=== PATIENT | female | born 1980 | race Caucasian/White ===

== ENCOUNTER 2020-09-27 17:39 | Emergency (ER) | payer BC, SELFPAY ==
[2020-09-27 17:55] VITALS: BP 105/74; PULSE 94; RESP 18; TEMP 36.6; O2SAT 98; BMI 31.1
--- NOTE | 2020-09-27 18:12 | HMH.EDUTC ---
[facility] [place] Clinical Impression: Acute bronchitis Qualifiers: Bronchitis organism: unspecified organism Qualified Code(s): J20.9 - Acute bronchitis, unspecified Sinusitis Qualifiers: Sinusitis location: unspecified location Chronicity: unspecified Qualified Code(s): J32.9 - Chronic sinusitis, unspecified Disposition: Home, Self-Care Condition on Discharge: Good Instructions: Sinusitis, Sinus Headache, Acute Bronchitis, DI for Sinusitis, DI for Acute Bronchitis, Azithromycin Additional Instructions: *Monitor Temp, Over the counter Motrin or Tylenol as directed/as needed Tylenol every 4 hours and Motrin every 6 hours (as long as your family doctor has told you that you can take it) for fever or pain. and straight to ER if unable to lower temp less than 101.0 after medication given *Warm salt water gargles may help to soothe the throat *Throat Lozenges *Warm fluids like tea with honey may help to soothe the throat *Sleep elevated *Bromfed may cause drowsiness. Know how it effects you (your child) before driving, caring for small child, or sending your child to school. Not other antihistamines/allergy medications while taking bromfed ? Start antibiotic today. Be sure to complete entire prescription even if feeling better ? Monitor temp. Tylenol every 4 hours as needed and / or ibuprofen every 6 hours as needed ( As long as your primary care physician has told you that it ok to take both. For fever/aches/pains ER if no less than 101 despite Tylenol or Motrin ? Humidifier/vaporizer or hot steamy shower ? Inhaler every 4-6 hours as needed like we discussed. If unsure how to use it, ask pharmacist to demonstrate how. Should help open airways and improve cough, wheezing, and shortness of breath ? Mucinex during the day for your cough and cough suppressant only at night. Be sure to drink lots of water. Insurance may not cover a prescriptions for mucinex. Follow up IMMEDIATELY for new or worsening of symptoms OR no noticeable improvement over the next 48-72 hours. 911 immediately for any life threatening symptoms such as chest pain or difficulty breathing You was tested for today for COVID19 your test result should be back in the next 24-48 hours, you may call back on Thursday to see if your test results are back and the result You was given a handout with instructions for Self Quarantine and Self isolation for while you wait on test results and what to do if they are positive Prescriptions: Albuterol Sulfate [Proventil-HFA 90mcg/puff Inh] 1 - 2 puffs IH Q4HP PRN #1 inh PRN Reason: Shortness Of Breath Transmission Status: Received by [facility] # Brompheniramine/Pseudoephed/Dm [Bromfed Dm Cough Syrup] 5 - 10 ml PO Q46H PRN #200 ml PRN Reason: Cough Transmission Status: Received by [facility] # Fluticasone Propionate [Flonase 50mcg nasal spray 16gm] 1 spr NS DAILY #1 bottle Transmission Status: Received by [facility] # Azithromycin [Z-James 250mg Tab] 250 mg PO DIRECTED #6 tab Transmission Status: Received by [facility] # Referrals: PCP,No [Primary Care Provider] - As needed Forms: Work/School Release Time of Disposition: 18:22 Medical Decision Making - Matteo Inquiry Pt receiving controlled substance: No Matteo was queried for this patient: No Vital Signs: 09/27/20 17:55 09/27/20 18:31 Temperature 97.9 F 97.9 F Temperature Source Oral Pulse Rate 94 H Pulse Rate [Left Brachial] 94 H Respiratory Rate 18 18 Blood Pressure 105/74 L Blood Pressure [Left Arm] 105/74 L Blood Pressure Mean [Left Arm] 84 Blood Pressure Source [Left Arm] Automatic Cuff Blood Pressure Position [Left Arm] Sitting 02 Sat by Pulse Oximetry 98 Oxygen Delivery Method Room Air Orders (Tests/Meds): ED MEDICATIONS Discontinued Medications Generic Name Dose Route Start Last Admin Trade Name Freq PRN Reason Stop Dose Admin Methylprednisolone Sodium Succinate
[2020-09-27 18:31] VITALS: BP 105/74; PULSE 94; RESP 18; TEMP 36.6; O2SAT 98
[2020-09-29 16:07] LABS: Covid-19 Nasal PCR Sendout Lex Not Detected
--- NOTE | 2020-09-29 18:13 | PC.NURSE ---
nicyk left notifying patient of neg results
== END 2020-09-27 18:33 | disposition home or self-care (01) ==
PROVIDERS: Emergency Provider Nurse Practitioner
DX: Z20.828 Contact with and (suspected) exposure to other viral communicable diseases (principal); J20.9 Acute bronchitis, unspecified; J32.9 Chronic sinusitis, unspecified; F17.210 Nicotine dependence, cigarettes, uncomplicated
CPT/HCPCS: 96372; 99202; U0004

== ENCOUNTER 2021-03-17 21:11 | Emergency (ER) | payer BC, SELFPAY ==
[2021-03-17 21:12] VITALS: BP 117/82; PULSE 109; RESP 18; TEMP 36.8; O2SAT 98; BMI 36.3
[2021-03-17 21:24] VITALS: BP 117/82; PULSE 101; O2SAT 98
[2021-03-17 21:30] VITALS: BP 111/89; PULSE 102; O2SAT 96
--- NOTE | 2021-03-17 21:36 | CT_ITS ---
PROCEDURE: CT CERVICAL SPINE WO CON CLINICAL INDICATION: injury COMPARISON: No exams were available for comparison TECHNIQUE: Axial images obtained with sagittal and coronal reformats. All CT scans at the facility use one or more dose reduction, viz: automated exposure control, ma/kV adjustment per patient size (including targeted exams where dose is matched to indication, i.e. head), or iterative reconstruction technique. Axial spiral CT scanning performed of the cervical spine beginning at the base of the skull and continuing to the upper T-spine. 3-D multiplanar reconstruction with 3-D manipulation of volumetric data set in image rendering was completed by the radiologist and/or technologist with the supervision of the radiologist on independent workstation. FINDINGS: No fracture nor subluxation is evident. Normal prevertebral soft tissues. Facets, neural foramen and vertebral bodies intact and unremarkable. Normal C1/C2 relationships. Apices of lungs are clear with no acute findings. IMPRESSION: Cervical spine intact with no fracture nor subluxation. Dictated by: Rufus Rodriguez MD 03/18/2021 11:44 Rufus Rodriguez MD in [facility] 03/18/2021 11:44
--- NOTE | 2021-03-17 21:36 | XR_ITS ---
PROCEDURE: XR PELVIS 1-2V CLINICAL INDICATION: injury COMPARISON: No exams were available for comparison TECHNIQUE: XR Pelvis AP View FINDINGS: No fracture or dislocation is evident. No significant degenerative change. No lytic or blastic change. IMPRESSION: No acute findings. Dictated by: Rufus Rodriguez MD 03/18/2021 06:01 Rufus Rodriguez MD in [facility] 03/18/2021 06:01
--- NOTE | 2021-03-17 21:36 | XR_ITS ---
PROCEDURE: XR CHEST 2V CLINICAL HISTORY: injury COMPARISON: No exams were available for comparison FINDINGS: The cardiomediastinal silhouette and pulmonary vascularity are within normal limits. The lungs are clear without infiltrates, suspicious nodules, or pleural effusions. No acute bony abnormalities. IMPRESSION: No acute findings. Dictated by: Rufus Rodriguez MD 03/18/2021 06:03 Rufus Rodriguez MD in [facility] 03/18/2021 06:03
--- NOTE | 2021-03-17 21:36 | XR_ITS ---
PROCEDURE: XR SHOULDER RT MIN 2V CLINICAL INDICATION: injury Posttraumatic pain COMPARISON: No exams were available for comparison FINDINGS: No fracture or dislocation. No lytic or blastic change. There is normal mineralization. The joint spaces are well-preserved. No significant degenerative/arthritic changes. No erosive changes evident. Other findings:7 mm lucency is present involving the distal aspect of the clavicle and may be due to a small geode. IMPRESSION: No acute findings. Dictated by: Rufus Rodriguez MD 03/18/2021 06:01 Rufus Rodriguez MD in [facility] 03/18/2021 06:01
--- NOTE | 2021-03-17 21:36 | XR_ITS ---
PROCEDURE: XR KNEE RT 3V CLINICAL INDICATION: injury COMPARISON: No exams were available for comparison FINDINGS: No fracture or dislocation. No lytic or blastic change. There is normal mineralization. The joint spaces are well-preserved. No significant degenerative/arthritic changes. No erosive changes evident. Other findings:None. IMPRESSION: No acute findings. Dictated by: Rufus Rodriguez MD 03/18/2021 06:02 Rufus Rodriguez MD in [facility] 03/18/2021 06:02
--- NOTE | 2021-03-17 21:36 | CT_ITS ---
PROCEDURE: CT THORACIC SPINE WO CON CLINICAL HISTORY: injury Pain COMPARISON: No exams were available for comparison TECHNIQUE: Axial images obtained with sagittal and coronal reformats. All CT scans at the facility use one or more dose reduction, viz: automated exposure control, ma/kV adjustment per patient size (including targeted exams where dose is matched to indication, i.e. head), or iterative reconstruction technique. FINDINGS: Normal alignment. No fracture or dislocation. No lytic or blastic change. Minimal degenerative changes in the upper thoracic spine with slight decrease in the disc space at T2-T3-T4-T5 and T6 There is minimal centrilobular emphysematous change in the upper lobes in there is calcified nodes in the subcarinal region and right hilum IMPRESSION: No acute finding Dictated by: Rufus Rodriguez MD 03/18/2021 11:47 Rufus Rodriguez MD in [facility] 03/18/2021 11:47
--- NOTE | 2021-03-17 21:36 | CT_ITS ---
PROCEDURE: CT FACIAL BONES WO CON CLINICAL HISTORY: injury Pain COMPARISON: No exams were available for comparison TECHNIQUE: Axial images obtained with sagittal and coronal reformats. All CT scans at the facility use one or more dose reduction, viz: automated exposure control, ma/kV adjustment per patient size (including targeted exams where dose is matched to indication, i.e. head), or iterative reconstruction technique. FINDINGS: There is mild mucosal thickening the frontal sinuses and moderate opacification of the ethmoid sinuses on both sides. Minimal mucosal thickening right maxillary sinus. No sinus air-fluid levels. There is mild nasal septal deviation toward the left. Small right lynnette bullosa is noted. Artifact is present from ear piercing on the right. There is minimal calcification of the optic disc region on the right IMPRESSION: No acute fracture Minimal optic disc calcification on the right. Dictated by: Rufus Rodriguez MD 03/18/2021 11:41 Rufus Rodriguez MD in [facility] 03/18/2021 11:41
--- NOTE | 2021-03-17 21:47 | HMH.EDGENADL ---
ED Disposition Clinical Impression: Blurred vision, right eye Facial contusion Qualifiers: Encounter type: initial encounter Qualified Code(s): S00.83XA - Contusion of other part of head, initial encounter Shoulder pain, right Qualifiers: Chronicity: acute Qualified Code(s): M25.511 - Pain in right shoulder Knee pain, acute Qualifiers: Laterality: right Qualified Code(s): M25.561 - Pain in right knee Disposition: Home, Self-Care Condition on Discharge: Good Instructions: DI for Acute Pain -- Adult Additional Instructions: ice and see pcp for follow up and eye center and ortho Referrals: Tess Cantrell MD [Primary Care Provider] - Lenora Doe MD [Physician] - - Critical Care Critical Care Time: No Attestation: On 03/17/21, the high probability of a clinically significant, sudden or life threatening deterioration of the following system(s) required my full and direct attention, intervention and personal management. The time I documented below is in addition to time spent performing reported procedures but includes the following listed in this critical care notation. Medical Decision Making - Medical Records Medical records reviewed: Yes: I reviewed the patient's medical records. - Matteo Inquiry Pt receiving controlled substance: No Vital Signs: 03/17/21 21:12 03/17/21 21:24 03/17/21 21:30 Temperature 98.3 F Temperature Source Oral Pulse Rate 101 H 102 H Pulse Rate [Left Radial] 109 H Respiratory Rate 18 Blood Pressure 117/82 111/89 Blood Pressure [Left Arm] 117/82 Blood Pressure Mean 96 97 Blood Pressure Mean [Left Arm] 93 Blood Pressure Position [Left Arm] Sitting 02 Sat by Pulse Oximetry 98 98 96 Oxygen Delivery Method Room Air 03/17/21 22:01 03/18/21 00:16 Temperature Temperature Source Pulse Rate 95 H Pulse Rate [Left Radial] Respiratory Rate Blood Pressure Blood Pressure [Left Arm] Blood Pressure Mean Blood Pressure Mean [Left Arm] Blood Pressure Position [Left Arm] 02 Sat by Pulse Oximetry 97 Oxygen Delivery Method Room Air - Lab Data Lab results reviewed: Yes: I reviewed the patient's lab results. Orders (Tests/Meds): ORDERS Category Date Time Status CT cervical spine wo con Stat Cat Scan 03/17/21 21:[address] facial bones wo con Stat Cat Scan 04/25/21 21:[address] thoracic spine wo con Stat Cat Scan 03/17/21 21:36 Taken XR chest 2V Stat Exams 03/17/21 21:36 Taken XR knee RT 3V Stat Exams 03/17/21 21:36 Taken XR pelvis 1-2V Stat Exams 03/17/21 21:36 Taken XR shoulder RT min 2V Stat Exams 03/17/21 21:36 Taken - Radiology Data #1 Image(s): Chest, Shoulder, Pelvis, Knee Image Reviewed: Yes I reviewed the patient's radiology image Preliminary Findings: No Fracture Seen - CT Data CT Scan: C-Spine, T-Spine, Other (facial) Time Received: 00:[address] Reviewed: Yes: I have viewed the radiologist's interpretation Preliminary Findings: No Fracture Seen Medical Decision Narrative: rt knee with possible lig injury and rt shoulder pain and no def fx - will need see eye center and ortho and pcp General Adult HPI - General Chief complaint: PAIN Stated complaint: ao 03/17@1999 INJURED r sHOULDER,iND eYE Time Seen by Provider: 03/17/21 21:30 Mode of Arrival: Ambulatory Source of Information: Patient, Spouse, Medical Record Limitations: No Limitations Description of Symptoms (Recalled from ER Triage Doc. by RN): Pt reports mowing her grass on riding parts remover when she was struck by a tree branch to right side of her face, right shoulder, and c/o pain to right knee. Pt is ambulatory into ED. She also c/o blurred vision to the right eye. - History of Present Illness HPI narrative: pt with acute injury to rt knee facial area and rt shoulder with no loc - no abd pain but banks blurred vision rt eye Onset (ago): hour(s) Location: face, upper extremity, lower extremity Severity: moderate Associated sy
[2021-03-17 22:01] VITALS: PULSE 95; O2SAT 97
[2021-03-18 00:26] VITALS: BP 115/75; PULSE 79; RESP 17; TEMP 36.7; O2SAT 99
== END 2021-03-18 00:30 | disposition home or self-care (01) ==
PROVIDERS: Emergency Provider Emergency Medicine; PCP Family Medicine
DX: S00.83XA Contusion of other part of head, initial encounter (principal); M25.511 Pain in right shoulder; M25.561 Pain in right knee; H53.8 Other visual disturbances; W22.8XXA Striking against or struck by other objects, initial encounter; Y93.I9 Activity, other involving external motion; Y92.017 Garden or yard in single-family (private) house as the place of occurrence of the external cause; F17.210 Nicotine dependence, cigarettes, uncomplicated
CPT/HCPCS: 70486; 71046; 72125; 72128; 72170; 73030; 73562; 99282

== ENCOUNTER → 2021-04-02 10:39 | Outpatient (CLI) | payer BC, SELFPAY ==
--- NOTE | 2021-04-02 10:51 | MR_ITS ---
PROCEDURE: MR KNEE RT WO CON CLINICAL INDICATION: RIGHT KNEE PAIN COMPARISON: No exams were available for comparison TECHNIQUE: Routine multiplanar multi echo sequences are performed without gadolinium enhancement. FINDINGS: There is a complex tear of the anterior horn of the lateral meniscus. The medial meniscus is intact. The medial and lateral collateral ligament complex are intact. The ACL and PCL are intact. The extensor mechanism is unremarkable. The popliteal tendon and the posterolateral corner structures are within normal limits. The articular cartilage in the medial, lateral and patellofemoral compartments are intact intact without evidence of cartilage loss or defect. Bone marrow signal intensity is within normal limits. Small suprapatellar joint effusion is noted. Soft tissues are unremarkable. IMPRESSION: Complex tear of the anterior horn of the lateral meniscus. Small suprapatellar joint effusion. Dictated by: Flaca Garner 04/02/2021 13:36 Flaca Garner in [facility] 04/02/2021 13:36
== END ==
PROVIDERS: PCP Family Medicine; Visit Provider Orthopaedic Surgery
DX: M25.561 Pain in right knee (principal)
CPT/HCPCS: 73721

== ENCOUNTER 2021-10-02 12:12 | Emergency (ER) | payer MEDICAID, SELFPAY ==
[2021-10-02 14:05] VITALS: BP 122/87; PULSE 96; RESP 18; TEMP 36.8; O2SAT 98; BMI 36.9
[2021-10-02 14:18] LABS: UTC Strep Screen (Rapid) Positive (Negative)
[2021-10-02 14:30] VITALS: BP 122/87; PULSE 96; RESP 18; TEMP 36.8
--- NOTE | 2021-10-02 14:30 | HMH.EDUTC ---
[facility] [place] Clinical Impression: Sinusitis Qualifiers: Sinusitis location: unspecified location Chronicity: acute Recurrence: non-recurrent Qualified Code(s): J01.90 - Acute sinusitis, unspecified Pharyngitis Qualifiers: Pharyngitis/tonsillitis etiology: unspecified etiology Qualified Code(s): J02.9 - Acute pharyngitis, unspecified Disposition: Home, Self-Care Condition on Discharge: Good Instructions: DI for Pharyngitis/Tonsillopharyngitis -- Adult, DI for Sinusitis, Preventing the Spread of Coronavirus Discharge Instructions Additional Instructions: Drink plenty of fluids. Take tylenol or ibuprofen for pain or fever. Take the medications as directed. Follow up with your regular doctor. GO TO THE ER FOR ANY WORSENING SYMPTOMS Quarantine until you know the results of your covid-19 test. If it is positive, the health department should call you and give you further instructions about your length of Quarantine and other things. Notify your school or workplace of your results and follow their instructions regarding return to work/school. Prescriptions: Benzonatate [Benzonatate 100mg cap] 100 mg PO TIDP PRN #30 cap PRN Reason: Cough Transmission Status: Received by [facility] # methylPREDNISolone [Medrol] 4 mg PO DIRECTED 6 Days #21 packet Transmission Status: Received by [facility] # Azithromycin [Z-James 250mg Tab*] 250 mg PO UD DOSE PK #6 tab Transmission Status: Received by [facility] # Referrals: Tess Cantrell MD [Primary Care Provider] - Time of Disposition: 14:33 Medical Decision Making - Medical Records Medical records reviewed: No: I reviewed the patient's medical records. - Matteo Inquiry Pt receiving controlled substance: No Vital Signs: 10/02/21 14:05 10/02/21 14:30 Temperature 98.3 F 98.3 F Temperature Source Oral Pulse Rate 96 H Pulse Rate [Left] 96 H Respiratory Rate 18 18 Blood Pressure 122/87 Blood Pressure [Right Arm] 122/87 Blood Pressure Mean [Right Arm] 98 02 Sat by Pulse Oximetry 98 - Lab Data Lab results reviewed: Yes: I reviewed the patient's lab results. Lab Results 10/02/21 14:10: Strep Scn Rapid Clinic Positive A [facility] [place] - General Stated complaint: covid symptoms Time Seen by Provider: 10/02/21 14:30 Mode of Arrival: Ambulatory Source of Information: Patient Limitations: No Limitations Description of Symptoms (Recalled from Triage Doc. by RN): pt c/o nasal drainage, fatigue, cough, wheezing, congestion, loss of taste and body aches. HEENT Symptoms (Recalled from RN notes): Yes (congestion and loss of taste) Resp Symptoms (Recalled from RN notes): Yes (cough) Skin Symptoms (Recalled from RN notes): No MS Symptoms (Recalled from RN notes): No Functional Status (Recalled from RN notes): fatigue and myalgia - History of Present Illness Provider Complaint: She c/o feeling bad for the past 3 days. She has a cough and sinus congestion. She denies fever. She has been vaccinaed agains covid-19. - Related Data Home Medications Medication Instructions Recorded Confirmed Valacyclovir HCl [Valacyclovir] 500 mg PO DAILY 03/17/21 08/30/21 cyclobenzaprine 10 mg tablet 10 mg PO tab 08/30/21 08/30/21 methocarbamol 750 mg tablet 750 mg PO PRN tab 08/30/21 08/30/21 naproxen 500 mg tablet 500 mg PO tab 08/30/21 08/30/21 norethindrone (contraceptive) 0.35 0.35 mg PO tab 08/30/21 08/30/21 mg tablet tramadol 50 mg tablet 50 mg PO tab 08/30/21 08/30/21 Previous Rx's Medication Instructions Recorded Azithromycin [Z-James 250mg Tab*] 250 mg PO UD DOSE PK #6 tab 10/02/21 Benzonatate [Benzonatate 100mg 100 mg PO TIDP PRN #30 cap 10/02/21 cap] methylPREDNISolone [Medrol] 4 mg PO DIRECTED 6 Days #21 10/02/21 packet Allergies Allergy/AdvReac Type Severity Reaction Status Date / Time No Known Allergies Allergy Verified 08/30/21 17:18 - Worker's Comp Is this
== END 2021-10-02 14:46 | disposition home or self-care (01) ==
PROVIDERS: Emergency Provider Nurse Practitioner Family; PCP Family Medicine
DX: J01.90 Acute sinusitis, unspecified (principal); J02.9 Acute pharyngitis, unspecified; F17.210 Nicotine dependence, cigarettes, uncomplicated; Z20.822 Contact with and (suspected) exposure to COVID-19
CPT/HCPCS: 87880; 99203; C9803; G0463; U0003; U0005

== ENCOUNTER 2021-10-04 14:24 | Emergency (ER) | payer MEDICAID, SELFPAY ==
[2021-10-04 14:50] VITALS: BP 127/72; PULSE 99; RESP 17; TEMP 36.8; O2SAT 99; BMI 31.2
--- NOTE | 2021-10-04 15:25 | HMH.EDUTC ---
[facility] [place] Impression: URI (upper respiratory infection) Disposition: Home, Self-Care Condition on Discharge: Good Instructions: Sinusitis (Alternative Therapy), Sore Throat Additional Instructions: *Monitor Temp, Over the counter Motrin or Tylenol as directed/as needed Tylenol every 4 hours and Motrin every 6 hours (as long as your family doctor has told you that you can take it) for fever or pain. and straight to ER if unable to lower temp less than 101.0 after medication given Continue taking Medications as prescribed *Warm salt water gargles may help to soothe the throat *Throat Lozenges *Warm fluids like tea with honey may help to soothe the throat *Sleep elevated *Humidifier/Vaporizer *Flonase 2 sprays in each nostril daily but be aware that it may take 2-3 days before you notice improvement *Bromfed may cause drowsiness. Know how it effects you (your child) before driving, caring for small child, or sending your child to school. Not other antihistamines/allergy medications while taking bromfed Your throat swab was sent for culture. Those results are typically sent to your primary care. Be sure to follow up in 2-3 days with your family doctor/primary care physician if no improvement so they can review those result and treat if necessary. If you don?t have a primary care doctor, I recommend you get one but in the mean time, you will have to return to a walk in clinic Follow up IMMEDIATELY for new or worsening symptoms or no Noticeable improvement over the next 48-72 hours. 911 for difficulty breathing or swallowing Prescriptions: Albuterol Sulfate [Proventil-HFA 90mcg/puff Inh] 1 - 2 puffs IH Q6HP PRN #1 each PRN Reason: Shortness Of Breath Transmission Status: Received by [facility] #[id number] Brompheniramine/Pseudoephed/Dm [Bromfed Dm Cough Syrup] 5 - 10 ml PO Q46H PRN #200 ml PRN Reason: Cough Transmission Status: Received by [facility] #[id number] Referrals: Brandon Conklin APRN [Primary Care Provider] - As needed Time of Disposition: 15:57 Medical Decision Making - Matteo Inquiry Pt receiving controlled substance: No Matteo was queried for this patient: No Vital Signs: 10/04/21 14:50 10/04/21 16:16 Temperature 98.2 F 98.2 F Temperature Source Oral Pulse Rate 99 H Pulse Rate [Right Brachial] 99 H Respiratory Rate 17 17 Blood Pressure 127/72 Blood Pressure [Right Arm] 127/72 Blood Pressure Mean [Right Arm] 90 Blood Pressure Source [Right Arm] Automatic Cuff Blood Pressure Position [Right Arm] Sitting 02 Sat by Pulse Oximetry 99 Oxygen Delivery Method Room Air - Lab Data Lab results reviewed: Yes: I reviewed the patient's lab results. Lab Results 10/04/21 15:09: Strep Scn Rapid Clinic Negative Orders (Tests/Meds): ED MEDICATIONS Discontinued Medications Generic Name Dose Route Start Last Admin Trade Name Leidy PRN Reason Stop Dose Admin Ceftriaxone Sodium 1 gm 10/04/21 15:50 10/04/21 16:03 Ceftriaxone 1gm Vial IM 10/04/21 15:51 1 gm ONCE ONE Administration Lidocaine HCl 0 ml 10/04/21 15:50 10/04/21 16:03 Lidocaine 1% 5ml Pf Vial IM 10/04/21 15:51 2.1 ml ONCE ONE Administration ORDERS Category Date Time Status Strep Screen Confirmation Stat Micro 10/04/21 15:09 Received [facility] [place] - General Stated complaint: sore throat, cough, loss of taste, abd pains Time Seen by Provider: 10/04/21 15:25 Mode of Arrival: Ambulatory Source of Information: Patient Limitations: No Limitations Description of Symptoms (Recalled from Triage Doc. by RN): PATIENT REPORTS SHE WAS TREATED FOR STREP A FEW DAYS AGO BUT IS NOT FEELING BETTER HEENT Symptoms (Recalled from RN notes): Yes Resp Symptoms (Recalled from RN notes): No Skin Symptoms (Recalled from RN notes): No MS Symptoms (Recalled from RN notes): No Functional Status (Recalled from RN notes): WNL - History of Present Illness Provider Complaint: Patient states th
[2021-10-04 15:29] LABS: UTC Strep Screen (Rapid) Negative (Negative)
[2021-10-04 16:16] VITALS: BP 127/72; PULSE 99; RESP 17; TEMP 36.8; O2SAT 99
== END 2021-10-04 16:23 | disposition home or self-care (01) ==
PROVIDERS: Emergency Provider Nurse Practitioner; PCP Nurse Practitioner Family
DX: J06.9 Acute upper respiratory infection, unspecified (principal)
CPT/HCPCS: 87880; 96372; 99202; G0463

== ENCOUNTER 2021-10-07 20:36 | Emergency (ER) | payer MEDICAID, SELFPAY ==
--- NOTE | 2021-10-07 20:31 | ECG_ITS ---
APPROVED REPORT Exam: Resting ECG HR:101 bpm ECG Measurements Heart Rate 101 AXES LA 122 P 67 QRSd 78 QRS 39 QT 366 T 66 QTc 474 Conclusion Sinus tachycardia Otherwise normal ECG Electronically signed by : Oscar Ryan MD 10/08/2021 22:10:04
[2021-10-07 20:37] VITALS: BP 156/94; PULSE 99; RESP 20; TEMP 36.5; O2SAT 98; BMI 35.5
--- NOTE | 2021-10-07 20:38 | XR_ITS ---
PROCEDURE INFORMATION: Exam: XR Chest Exam date and time: 10/07/2021 8:38 PM Age: 41 years old Clinical indication: Right-sided; Patient HX: Chest pain for 1 day that is across entire chest and goes up right side of neck, smoker around 2 packs per day TECHNIQUE: Imaging protocol: XR of the chest. Views: 2 views. COMPARISON: CR XR CHEST 2V 03/17/2021 10:43 PM FINDINGS: Lungs: Unremarkable. No consolidation. Pleural spaces: Unremarkable. No pleural effusion. No pneumothorax. Heart/Mediastinum: Unremarkable. No cardiomegaly. Bones/joints: Unremarkable. IMPRESSION: No acute findings.
[2021-10-07 20:41] VITALS: BMI 35.5
--- NOTE | 2021-10-07 20:41 | HMH.EDGENADL ---
ED Disposition Clinical Impression: Atypical chest pain Disposition: Home, Self-Care Condition on Discharge: Good Additional Instructions: Please follow-up with your primary care provider. For the next week take 600 of ibuprofen every 8 hours. Return to the emergency department for any new or concerning symptoms. Referrals: Provider,Referral, [Referring] - - Critical Care Critical Care Time: No Attestation: On , the high probability of a clinically significant, sudden or life threatening deterioration of the following system(s) required my full and direct attention, intervention and personal management. The time I documented below is in addition to time spent performing reported procedures but includes the following listed in this critical care notation. Medical Decision Making - Medical Records Medical records reviewed: Yes: I reviewed the patient's medical records. - Matteo Inquiry Pt receiving controlled substance: No Vital Signs: 10/07/21 20:37 Temperature 97.7 F Temperature Source Oral Pulse Rate [Right] 99 H Respiratory Rate 20 Blood Pressure [Right Arm] 156/94 H Blood Pressure Mean [Right Arm] 114 02 Sat by Pulse Oximetry 98 Oxygen Delivery Method Room Air - Lab Data Lab results reviewed: Yes: I reviewed the patient's lab results. Lab Results 10/07/21 20:42: WBC 22.6 H*, RBC 4.50, Hgb 13.7, Hct 40.8, MCV 90.7, MCH 30.4, MCHC 33.5, RDW 13.4, Plt Count 643 H, MPV 7.9, Neut % (Auto) 65.1, Lymph % (Auto) 27.1, [place] % (Auto) 4.1, Eos % (Auto) 2.8, Baso % (Auto) 0.9, Neut # (Auto) 14.7 H, Lymph # (Auto) 6.1 H, [place] # (Auto) 0.9, Eos # (Auto) 0.6 H, Baso # (Auto) 0.2 10/07/21 20:42: Sodium 138, Potassium 3.9, Chloride 102, Carbon Dioxide 31 H, Anion Gap 8.9, BUN 8, Creatinine 0.50 L, Estimated Creat Clear 233, Estimated GFR 136, Est GFR ( Amer) 165, Glucose 128 H, Calcium 9.0, Total Bilirubin 0.2, AST 16, ALT 15, Alkaline Phosphatase 77, Troponin I < 0.01, Total Protein 6.6, Albumin 3.8, Globulin 2.8, Albumin/Globulin Ratio 1.4 10/07/21 20:42: Magnesium 2.0 Result diagrams: 10/07/21 20:42 10/07/21 20:42 Orders (Tests/Meds): ED MEDICATIONS Discontinued Medications Generic Name Dose Route Start Last Admin Trade Name Leidy PRN Reason Stop Dose Admin Belladonna Alkaloids 60 ml 10/07/21 20:52 10/07/21 20:52 Gi Cocktail 60ml Udc PO 10/07/21 20:53 60 ml ONCE ONE Administration Diazepam 2 mg 10/07/21 21:49 10/07/21 21:50 Diazepam 2mg Tablet PO 10/07/21 21:50 Not Given ONCE ONE Diazepam 2 mg 10/07/21 21:51 Diazepam 10mg/2ml Syringe IV 10/07/21 21:52 ONCE ONE Ibuprofen 600 mg 10/07/21 21:42 10/07/21 21:47 Ibuprofen 600 Mg Tablet PO 10/07/21 21:43 600 mg ONCE ONE Administration ORDERS Category Date Time Status Complete Blood Count Auto Diff Stat Lab 10/07/21 20:42 Results Troponin I Q3H Lab 10/07/21 23:45 Ordered Troponin I Q3H Lab 10/08/21 02:45 Ordered - ALYSSA Score for Non-Stemi Age of Patient: 40-49 years old Heart Rate: 90-109 bpm Systolic Blood Pressure: 140-159 mmHg Serum Creatinine: 0.40-0.79 mg/dl CHF Killip Class: I-No CHF Other Risk Factors: None Non-Stemi Risk Score: 68 Medical Decision Narrative: Patient is a 41-year-old female presenting to the emergency department chief complaint of chest pain. Differential diagnosis in this patient includes ACS, pericarditis, GERD, pneumonia, esophagitis among others. Given this plan to order CBC, CMP, chest x-ray, troponin, EKG. CMP showed a leukocytosis, however patient recently received a steroid shot, believe this is the etiology of patient's discomfort, on ECG patient had normal sinus rhythm, no significant ST elevation or ST depression. Breathing comfortably on room air, patient was given a GI cocktail and had moderate resolution of symptoms. She complaining of bilateral shoulder pain as well as palpable external muscular chest pain. Patient was given Motrin for the sym
[2021-10-07 21:00] VITALS: BP 138/94; PULSE 90; RESP 18; O2SAT 97
[2021-10-07 21:00] LABS: Basophils # 0.2 K/mm3 (0-0.2); Basophils % 0.9 % (0.1-2.0); Chloride 102 mmol/L (98-107); Eosinophils # 0.6 K/mm3 (0.0-0.4); Eosinophils % 2.8 % (0.1-12.0); Hematocrit 40.8 % (37.0-47.0); Hemoglobin 13.7 g/dL (12.2-16.2); Lymphocytes # 6.1 K/mm3 (0.7-4.5); Lymphocytes % 27.1 % (10-50); Mean Corpuscular HGB Conc 33.5 g/dL (31.8-35.4); Mean Corpuscular Hemoglobin 30.4 pg (27.0-31.2); Mean Corpuscular Volume 90.7 fl (81-99); Mean Platelet Volume 7.9 fl (7.4-10.4); Monocytes # 0.9 K/mm3 (0.1-1.0); Monocytes % 4.1 % (1.7-9.3); Neutrophils # 14.7 K/mm3 (1.8-7.8); Neutrophils % 65.1 % (37.0-80.0); Platelet Count 643 K/mm3 (142-424); Red Cell Distribution Width 13.4 % (11.5-17.5); Sodium 138 mmol/L (136-145); White Blood Count 22.6 K/mm3 (4.8-10.8)
[2021-10-07 21:01] LABS: Potassium 3.9 mmoL/L (3.5-5.1)
[2021-10-07 21:02] LABS: MANUAL DIFFERENTIAL MANUAL DIFFERENTIAL (MANUAL DIFF)
[2021-10-07 21:03] LABS: Alanine Aminotransferase 15 U/L (12-78); Alkaline Phosphatase 77 U/L (38-126); Anion Gap 8.9 mEq/L (5-15); Aspartate Amino Transferase 16 U/L (14-36); Bilirubin,Total 0.2 mg/dl (0.2-1.3); Blood Urea Nitrogen 8 mg/dl (7-17); Carbon Dioxide 31 mmol/L (22.0-30.0); Creatinine Clearance Estimated 233 mL/min (50-200); Estimated Glomerular Filt Rate 136 ml/min (>60); GFR (African American) 165 ML/MIN (>60)
[2021-10-07 21:04] LABS: Albumin Level 3.8 g/dl (3.5-5.0); Albumin/Globulin Ratio 1.4 (1.1-1.8); Globulin 2.8 g/dL (1.3-3.2); Glucose 128 mg/dl (74-100); Total Protein,Serum 6.6 g/dl (6.3-8.2)
[2021-10-07 21:30] VITALS: BP 126/80; PULSE 92; RESP 20; O2SAT 96
[2021-10-07 21:30] LABS: Troponin I < 0.01 ng/ml (0.00-0.034)
[2021-10-07 22:00] VITALS: BP 130/88; PULSE 84; RESP 16; TEMP 36.7; O2SAT 98
[2021-10-07 22:35] LABS: Eosinophils % 2 % (0-3); Lymphocytes % 36 % (10-50); Monocytes % 5 % (2-9); Neutrophils % 57 % (42-76); Platelet Estimate Moderate Increase; RBC Morphology Normal; Total Cells Counted 100
== END 2021-10-07 22:10 | disposition home or self-care (01) ==
PROVIDERS: Emergency Provider Emergency Medicine; PCP Family Medicine
DX: R07.89 Other chest pain (principal); F17.210 Nicotine dependence, cigarettes, uncomplicated
CPT/HCPCS: 71046; 80053; 83735; 84484; 85007; 85025; 93005; 96374; 96375; 99282

== ENCOUNTER → 2021-12-04 12:33 | Outpatient (CLI) | payer MEDICAID, SELFPAY | PROVIDERS: Visit Provider Nurse Practitioner | DX: Z20.822 Contact with and (suspected) exposure to COVID-19 (principal) | CPT/HCPCS: C9803; U0003; U0005 ==

== ENCOUNTER → 2021-12-23 14:25 | Outpatient (CLI) | payer MEDICAID, SELFPAY | PROVIDERS: PCP Family Medicine; Visit Provider Nurse Practitioner | DX: U07.1 COVID-19 (principal) | CPT/HCPCS: C9803; U0003; U0005 ==

== ENCOUNTER → 2022-01-31 12:20 | Outpatient (CLI) | payer MEDICAID, SELFPAY ==
--- NOTE | 2022-01-31 12:26 | MM_ITS ---
PROCEDURE INFORMATION: Exam: MG Bilateral Screening 3D Mammography Exam date and time: 01/31/2022 12:26 PM Age: 41 years old Clinical indication: Baseline. No family history of breast cancer. TECHNIQUE: Imaging protocol: Bilateral Screening tomosynthesis and 2D mammography including computer-aided detection (CAD) when performed. COMPARISON: No relevant prior studies available.If prior mammograms are provided, I am happy to add an addendum. FINDINGS: MAMMOGRAPHY: Breast composition: The breast tissue is heterogeneously dense, which may obscure small masses. Mass: Possible sub cm nodules in the right breast, upper outer quadrant, middle to posterior 3rd. Architectural distortion: None. Calcifications: No suspicious calcifications. Asymmetric density: None. Skin thickening: None. Axillary adenopathy: None. IMPRESSION: Patient to be recalled for right diagnostic spot compression views in the CC and MLO as well as right breast ultrasound for further evaluation of possible right breast masses. ASSESSMENT: BI-RADS Category 0: Incomplete- Need Additional Imaging Evaluation and/or Prior Mammograms for Comparison
== END ==
PROVIDERS: PCP Family Medicine; Visit Provider Obstetrics & Gynecology Gynecology
DX: Z12.31 Encounter for screening mammogram for malignant neoplasm of breast (principal)
CPT/HCPCS: 77063; 77067

== ENCOUNTER → 2022-02-11 13:22 | Outpatient (CLI) | payer MEDICAID, SELFPAY ==
--- NOTE | 2022-02-11 13:31 | MM_ITS ---
PROCEDURE INFORMATION: Exam: US Right Breast, Complete MG Right Diagnostic Breast Tomosynthesis Exam date and time: 02/11/2022 1:47 PM Age: 41 years old Clinical indication: Patient recalled for further evaluation of questionable right breast masses TECHNIQUE: Imaging protocol: Complete ultrasound of all four quadrants of the Right breast and the retroareolar regions, including ultrasound of the axilla when performed. Right Diagnostic tomosynthesis and 2D mammography including computer-aided detection (CAD) when performed. Unilateral or bilateral exam. COMPARISON: 1. MG MM DIG SCREENING MAMM BI W/CAD 01/31/2022 12:58 PM 2. MG MM DIG MAMM DX UNILAT RT CAD 02/11/2022 1:47 PM FINDINGS: MAMMOGRAPHY: Digital diagnostic spot compression views of the right breast demonstrate normal overlapping fibroglandular structures without persistent mass or asymmetry identified. ULTRASOUND: Sonographic images of the right lateral breast demonstrates a cluster of cysts with a combined dimension of 0.7 cm in the 9 o'clock axis 3 cm from the nipple and a 0.6 cm benign intramammary lymph node in the 7 o'clock axis 4 cm from the nipple. No axillary adenopathy. IMPRESSION: No mammographic or sonographic evidence of malignancy. Annual bilateral mammographic screening is recommended unless otherwise clinically indicated. ASSESSMENT: BI-RADS Category 2: Benign
== END ==
PROVIDERS: PCP Family Medicine; Visit Provider Obstetrics & Gynecology Gynecology
DX: R92.8 Other abnormal and inconclusive findings on diagnostic imaging of breast (principal)
CPT/HCPCS: 76641; 77061; 77065; G0279

== ENCOUNTER 2022-06-22 11:52 | Emergency (ER) | payer MEDICAID, SELFPAY ==
[2022-06-22 11:53] VITALS: BP 154/91; PULSE 103; RESP 18; TEMP 36.5; O2SAT 98; BMI 35.2
--- NOTE | 2022-06-22 11:57 | PC.NURSE ---
RN in room triaging pt
--- NOTE | 2022-06-22 12:15 | PC.NURSE ---
ED MD AT BEDSIDE FOR EVALUATION
--- NOTE | 2022-06-22 12:26 | HMH.EDGENADL ---
ED Disposition Clinical Impression: Pain, dental Disposition: Home, Self-Care Condition on Discharge: Good Instructions: Tooth Abscess Additional Instructions: As discussed, call your dentist for further definitive management and characterization of dental pain. Take Augmentin 3 times daily for the next 7 days. Tylenol and ibuprofen for pain. Prescriptions: Amoxicillin/Potassium Clav [Augmentin 500mg tab] 500 mg PO TID #21 tab Transmission Status: Pending to [facility] Referrals: Tess Cantrell MD [Primary Care Provider] - - Critical Care Critical Care Time: No Attestation: On 06/22/22, the high probability of a clinically significant, sudden or life threatening deterioration of the following system(s) required my full and direct attention, intervention and personal management. The time I documented below is in addition to time spent performing reported procedures but includes the following listed in this critical care notation. Medical Decision Making - Matteo Inquiry Pt receiving controlled substance: No Vital Signs: 06/22/22 11:53 Temperature 97.7 F Temperature Source Oral Pulse Rate [Radial] 103 H Respiratory Rate 18 Blood Pressure [Right Arm] 154/91 H Blood Pressure Mean [Right Arm] 112 Blood Pressure Source [Right Arm] Automatic Cuff Blood Pressure Position [Right Arm] Sitting 02 Sat by Pulse Oximetry 98 Oxygen Delivery Method Room Air - Lab Data Lab Results 06/22/22 12:00: Group A Strep Rapid Negative Orders (Tests/Meds): ED MEDICATIONS Discontinued Medications Generic Name Dose Route Start Last Admin Trade Name Leidy PRN Reason Stop Dose Admin Acetaminophen 500 mg 06/22/22 12:25 06/22/22 12:30 Acetaminophen 500mg Tab PO 06/22/22 12:26 500 mg ONCE ONE Administration Hydrocodone Bitart/Acetaminophen 1 tab 06/22/22 12:25 06/22/22 12:30 Hydrocodone/Apap 5/325 Mg Tablet PO 06/22/22 12:26 1 tab ONCE ONE Administration ORDERS Category Date Time Status Covid-19 Nasal PCR ([facility]) Routine Lab 06/22/22 12:35 Received Strep Screen Confirmation Stat Micro 06/22/22 12:00 Received Medical Decision Narrative: This is a 42-year-old female with hypertension presenting with right facial pain. On arrival, patient hemodynamically stable, alert, oriented, moving all extremities spontaneously, pupils equal and reactive to light, GCS 15. Physical exam significant for well-appearing woman in no acute distress. Ulcer on hard palate that is subcentimeter, mildly tender to palpation. Swelling of hard palate on right side medial to teeth 2 and 3. No evidence of uvular deviation, uvulitis, tonsillitis, pharyngeal erythema, soft palate lesions, lymphadenopathy, stridor, any other intraoral abnormalities. Cardiopulmonary exam within normal limits. Logically intact and nonfocal. Differential includes gingivitis, periapical abscess, dental carry, sinusitis, among others. Work-up significant for negative streptococcal screen, COVID pending at time of discharge. Given patient's history and physical exam, this most likely represents dental caries versus sinusitis versus periapical abscess. Decision was had with patient regarding home-going and her comfort with this. She was comfortable with home-going, has a dentist she will follow-up with within 24 hours, and is agreeable to outpatient regiment with antibiotics and dental follow-up. Given this, patient deemed appropriate for discharge. Results were relayed to patient who voiced understanding and were agreeable to outpatient management and follow up. Patient was discharged in hemodynamically stable condition with recommended primary care follow-up. Given Augmentin 3 times daily for 7 days General Adult HPI - General Chief complaint: Dental/Oral Stated complaint: sore throat/blisters, fever, jaw pain Time Seen by Provider: 06/22/22 12:00 Mode of Arrival: Ambulatory Limitations: No Limitations Fr[place]
--- NOTE | 2022-06-22 12:30 | PC.NURSE ---
1230 PT MEDICATED PER EMAR, COVID SWAB COLLECTED AND SENT TO LAB
--- NOTE | 2022-06-22 12:45 | ECG_ITS ---
APPROVED REPORT Exam: Resting ECG HR:93 bpm ECG Measurements Heart Rate 93 AXES TN 127 P 62 QRSd 93 QRS 41 QT 367 T 59 QTc 418 Conclusion SINUS RHYTHM NORMAL ECG UNCONFIRMED REPORT Electronically signed by : Oscar Ryan MD 06/23/2022 20:37:50
[2022-06-22 12:48] LABS: Strep Scrn Group A (Rapid) Negative (Negative)
--- NOTE | 2022-06-22 13:27 | PC.NURSE ---
ED MD AT BEDSIDE TO REEVALUATE PT AND DISCUSS DISCHARGE
[2022-06-22 13:40] VITALS: BP 140/82; PULSE 76; RESP 18; TEMP 36.7
== END 2022-06-22 13:40 | disposition home or self-care (01) ==
PROVIDERS: Emergency Provider Emergency Medicine; PCP Family Medicine
DX: K08.89 Other specified disorders of teeth and supporting structures (principal); Z79.3 Long term (current) use of hormonal contraceptives
CPT/HCPCS: 87430; 93005; 99283; C9803; U0003; U0005

== ENCOUNTER 2022-09-19 19:56 | Emergency (ER) | payer MEDICAID, SELFPAY ==
[2022-09-19 19:58] VITALS: BP 131/95; PULSE 102; RESP 20; TEMP 37.1; O2SAT 97; BMI 36.3
--- NOTE | 2022-09-19 22:48 | ECG_ITS ---
APPROVED REPORT Exam: Resting ECG HR:108 bpm ECG Measurements Heart Rate 108 AXES CO 123 P 67 QRSd 85 QRS 54 QT 339 T 61 QTc 402 Conclusion SINUS TACHYCARDIA ABNORMAL RHYTHM ECG UNCONFIRMED REPORT Electronically signed by : Oscar Ryan MD 09/20/2022 22:41:41
--- NOTE | 2022-09-19 23:07 | XR_ITS ---
PROCEDURE INFORMATION: Exam: XR Chest Exam date and time: 09/19/2022 11:38 PM Age: 42 years old Clinical indication: Shortness of breath; Additional info: SOA TECHNIQUE: Imaging protocol: Radiologic exam of the chest. Views: 2 views. COMPARISON: CR XR CHEST 2V 10/07/2021 8:41 PM FINDINGS: Lungs: No acute findings or consolidation. Pleural spaces: No pleural effusion. No pneumothorax. Heart/Mediastinum: No acute findings or cardiomegaly. Bones/joints: No acute findings. IMPRESSION: No acute cardiopulmonary findings.
--- NOTE | 2022-09-19 23:10 | HMH.EDURI ---
Discharge Plan Disposition Patient Disposition: Home, Self-Care Prescriptions Prescriptions: New prednisone [prednisone] 20 mg tablet 20 mg PO BID Qty: 10 0RF levofloxacin 500 mg tablet 500 mg PO DAILY Qty: 7 0RF No Action Qelbree 200 mg capsule,extended release 24hr 600 mg PO DAILY Qty: 90 1RF tramadol 50 mg tablet 50 mg PO Q6HP PRN (Reason: pain) Label Comments: TAKE 1 TABLET BY MOUTH EVERY 6 HOURS NEEDED FOR PAIN norethindrone (contraceptive) 0.35 mg tablet 0.35 mg PO DAILY Label Comments: TAKE 1 TABLET BY MOUTH EVERY DAY estradiol 0.075 mg/24 hr patch semiweekly 1 patch TD ONCE Label Comments: APPLY 1 PATCH TOPICALLY TO THE SKIN 2 TIMES A WEEK DIRECTED albuterol sulfate 200 PUFFS HFA aerosol inhaler 1 - 2 puffs IH Q6HP PRN (Reason: Shortness Of Breath) Qty: 1 0RF valacyclovir 500 MG tablet 500 mg PO DAILY Label Comments: TAKE 1 TABLET BY MOUTH DAILY Referrals Follow up/Referrals: Tess Cantrell MD [Primary Care Provider] - See instructions Clinical Impressions Clinical Impression: Acute bronchitis, SIRS (systemic inflammatory response syndrome), Leukocytosis, unspecified, Atypical chest pain Instructions Patient Instructions: DI for Acute Bronchitis Discharge ED Provider: Aung Lynn URI/Sore Throat HPI General Chief Complaint: Upper Respiratory Infection Stated Complaint: weakness, cough, congestion, dizziness, bulching Time Seen by Provider: 09/19/22 23:10 Mode of Arrival: Ambulatory Source of Information: Patient and Medical Record Limitations: No Limitations Description of Symptoms (Recalled from ER Triage Doc. by RN): pt states she started having right sided chest pain yesterday. she states the chest pain resolves when she belches, and continues after. she states she feels like she is having a panic attack. she c/o SOA, h/a, non-productive cough, and congestion. History of Present Illness HPI Narrative: has rt sided chest pain since yesterday with cough and congestion - does smoke - no rash and no abd pain Complaint: cough Onset (ago): day(s) Duration: intermittent Severity: moderate Able to tolerate fluids by mouth: Yes Treatments prior to arrival: none Related Data Home Medications Medication Instructions Recorded Confirmed valacyclovir 500 mg tablet 500 mg PO DAILY Herpes simplex 03/17/21 08/18/22 norethindrone (contraceptive) 0.35 0.35 mg PO DAILY control 08/30/21 08/18/22 mg tablet tramadol 50 mg tablet 50 mg PO Q6HP PRN pain 08/30/21 08/18/22 estradiol 0.075 mg/24 hr 1 patch transdermal ONCE 04/30/22 08/18/22 semiweekly transdermal patch Previous Rx's Medication Instructions Recorded albuterol sulfate 90 mcg/actuation 1 - 2 puffs inhalation Q6HP PRN 10/04/21 aerosol inhaler Shortness Of Breath #1 ea viloxazine 200 mg capsule,extended 600 mg PO DAILY #90 caps 08/18/22 release 24 hr (Qelbree) levofloxacin 500 mg tablet 500 mg PO DAILY #7 tabs 09/20/22 prednisone 20 mg tablet 20 mg PO BID #10 tabs 09/20/22 Allergies Allergy/AdvReac Type Severity Reaction Status Date / Time No Known Allergies Allergy Verified 08/18/22 13:15 PFSH PFS Medical History (Updated 09/20/22 @ 01:54 by Aung Lynn MD) Attention deficit disorder (ADD) in adult Surgical History (Updated 09/19/22 @ 23:01 by Nat Turner RN) H/O right knee surgery History of cholecystectomy History of hysterectomy History of tonsillectomy Family History (Updated 09/19/22 @ 23:02 by Nat Turner RN) Diabetes Heart attack Social History Smoking Status: Current every day smoker tobacco type: cigarettes packs per day: 1 alcohol intake: never current occupational status: student and other Travel in the last 8 weeks: None number of children: 4 ROS Obtained: Yes All systems reviewed & no additional complaints except as documented Physical Exam General General appeara
[2022-09-19 23:14] LABS: Coronavirus 19, PCR Not Detected (NotDetected); Influenza A, PCR Not Detected (NotDetected); Influenza B, PCR Not Detected (NotDetected)
[2022-09-19 23:21] LABS: Basophils # 0.3 K/mm3 (0-0.2); Basophils % 1.1 % (0.1-2.0); Eosinophils # 0.9 K/mm3 (0.0-0.4); Eosinophils % 3.3 % (0.1-12.0); Hematocrit 46.8 % (37.0-47.0); Hemoglobin 15.6 g/dL (12.2-16.2); Lymphocytes # 5.4 K/mm3 (0.7-4.5); Lymphocytes % 20.6 % (10-50); Mean Corpuscular HGB Conc 33.3 g/dL (31.8-35.4); Mean Corpuscular Hemoglobin 31.1 pg (27.0-31.2); Mean Corpuscular Volume 93.2 fl (81-99); Mean Platelet Volume 8.5 fl (7.4-10.4); Monocytes # 1.1 K/mm3 (0.1-1.0); Neutrophils # 18.6 K/mm3 (1.8-7.8); Neutrophils % 71.1 % (37.0-80.0); Platelet Count 570 K/mm3 (142-424); Red Blood Count 5.02 M/mm3 (4.20-5.40); Red Cell Distribution Width 13.2 % (11.5-17.5); White Blood Count 26.2 K/mm3 (4.8-10.8)
[2022-09-19 23:25] LABS: Alanine Aminotransferase 29 U/L (12-78); Albumin Level 4.1 g/dl (3.5-5.0); Albumin/Globulin Ratio 1.3 (1.1-1.8); Alkaline Phosphatase 158 U/L (38-126); Anion Gap 14.8 mEq/L (5-15); Aspartate Amino Transferase 30 U/L (14-36); Blood Urea Nitrogen 14 mg/dl (7-17); Calcium 8.9 mg/dl (8.4-10.2); Carbon Dioxide 28 mmol/L (22.0-30.0); Chloride 100 mmol/L (98-107); Creatinine Clearance Estimated 135 mL/min (50-200); Estimated Glomerular Filt Rate 92 ml/min (>60); GFR (African American) 111 ML/MIN (>60); Globulin 3.2 g/dL (1.3-3.2); Glucose 149 mg/dl (74-100); Potassium 3.8 mmoL/L (3.5-5.1); Sodium 139 mmol/L (136-145); Total Protein,Serum 7.3 g/dl (6.3-8.2)
[2022-09-19 23:28] LABS: Bilirubin,Total < 0.1 mg/dl (0.2-1.3)
[2022-09-19 23:32] LABS: MANUAL DIFFERENTIAL MANUAL DIFFERENTIAL (MANUAL DIFF)
[2022-09-19 23:39] LABS: Troponin I < 0.01 ng/ml (0.00-0.034)
--- NOTE | 2022-09-19 23:43 | CT_ITS ---
PROCEDURE INFORMATION: Exam: CTA Chest With Contrast Exam date and time: 09/19/2022 11:49 PM Age: 42 years old Clinical indication: Shortness of breath; Additional info: SOA TECHNIQUE: Imaging protocol: Computed tomographic angiography of the chest with contrast. 3D rendering (Not supervised by radiologist): MIP and/or 3D reconstructed images were created by the technologist. Radiation optimization: All CT scans at this facility use at least one of these dose optimization techniques: automated exposure control; mA and/or kV adjustment per patient size (includes targeted exams where dose is matched to clinical indication); or iterative reconstruction. Contrast material: ISOVUE 370; Contrast volume: 70 ml; Contrast route: INTRAVENOUS (IV); COMPARISON: CR XR CHEST 2V 09/19/2022 11:38 PM FINDINGS: Pulmonary arteries: No pulmonary emboli. Aorta: No aortic aneurysm. No aortic dissection. Lungs: Mild centrilobular and paraseptal emphysematous changes in the upper lobes. No acute appearing consolidation or airspace disease. Small calcified granuloma in the right middle lobe. Pleural spaces: No pneumothorax. No pleural effusion. Heart: No cardiomegaly. Trace pericardial fluid. Lymph nodes: Small calcified mediastinal and right hilar lymph nodes. Adrenal glands: Well-circumscribed homogeneously hypoattenuating right adrenal nodule is 3 cm most consistent with adenoma. Bones/joints: No acute fracture. Soft tissues: No acute findings. IMPRESSION: 1. Trace pericardial fluid. 2. No evidence of pulmonary embolus. 3. No acute airspace disease. 4. Mild emphysematous changes in the upper lobes. 5. Chronic granulomatous changes. 6. 3 cm right adrenal adenoma.
[2022-09-19 23:51] LABS: Eosinophils % 3 % (0-3); Lymphocytes % 21 % (10-50); Monocytes % 3 % (2-9); Neutrophils % 73 % (42-76); RBC Morphology Normal; Total Cells Counted 100
[2022-09-19 23:52] LABS: Platelet Estimate Slight Increase
[2022-09-19 23:54] LABS: Alanine Aminotransferase 28 U/L (12-78); Albumin Level 4.2 g/dl (3.5-5.0); Alkaline Phosphatase 155 U/L (38-126); Amylase 53 U/L (30-110); Aspartate Amino Transferase 27 U/L (14-36); Bilirubin,Indirect 0.1 mg/dL (0.0-0.9); Bilirubin,Total < 0.1 mg/dl (0.2-1.3); Lipase 64 U/L (23-300); Total Protein,Serum 7.4 g/dl (6.3-8.2)
[2022-09-20 00:30] VITALS: BP 156/105; PULSE 98; RESP 25; O2SAT 97
[2022-09-20 01:00] VITALS: BP 148/102; PULSE 100; RESP 24; O2SAT 97
[2022-09-20 01:09] LABS: Lactic Acid 0.6 mmol/L (0.7-2.1)
[2022-09-20 01:30] VITALS: BP 152/96; PULSE 101; RESP 26; O2SAT 97
[2022-09-20 01:57] VITALS: BP 152/96; PULSE 101; RESP 24; TEMP 37.1; O2SAT 97
[2022-09-22 02:04] LABS: Peripheral Smear Review Scanned Result
== END 2022-09-20 01:58 | disposition home or self-care (01) ==
PROVIDERS: Emergency Provider Emergency Medicine; PCP Family Medicine
DX: R65.10 Systemic inflammatory response syndrome (SIRS) of non-infectious origin without acute organ dysfunction (principal); D72.829 Elevated white blood cell count, unspecified; R07.89 Other chest pain; Z79.3 Long term (current) use of hormonal contraceptives; Z79.899 Other long term (current) drug therapy; B00.9 Herpesviral infection, unspecified
CPT/HCPCS: 71046; 71275; 80053; 80076; 82150; 83605; 83690; 84484; 85007; 85025; 87040; 93005; 96374; 99212; C9803; G0463; Q9967; U0003; U0005

== ENCOUNTER 2022-10-27 18:40 | Emergency (ER) | payer MEDICAID, SELFPAY ==
[2022-10-27 19:50] VITALS: BP 139/93; PULSE 133; RESP 19; TEMP 37.6; O2SAT 98; BMI 30.2
--- NOTE | 2022-10-27 20:07 | EXP.UTC ---
Discharge Plan Disposition Patient Disposition: Home, Self-Care Condition: Good Prescriptions Prescriptions: New cefdinir 300 mg capsule 300 mg PO BID Qty: 20 0RF guaifenesin [Mucinex] 600 mg tablet extended release 12hr 600 mg PO BID PRN (Reason: cough) Qty: 20 0RF azithromycin [Zithromax Z-James] 250 mg tablet See Rx Instructions .ROUTE .COMPLEX 5 Days Qty: 6 0RF Rx Instructions: For 250 mg dose pack: take 500 mg today (day 1), then 250 mg for 4 days (days 2-5) ondansetron 4 mg tablet,disintegrating 4 mg PO Q8H PRN (Reason: nausea and vomiting) Qty: 10 0RF albuterol sulfate [Proventil HFA] 90 mcg/actuation HFA aerosol inhaler 1 inh inhalation Q6H PRN (Reason: shortness of breath or wheezing) Qty: 8.5 0RF No Action Qelbree 200 mg capsule,extended release 24hr 600 mg PO DAILY Qty: 90 1RF tramadol 50 mg tablet 50 mg PO Q6HP PRN (Reason: pain) Label Comments: TAKE 1 TABLET BY MOUTH EVERY 6 HOURS NEEDED FOR PAIN norethindrone (contraceptive) 0.35 mg tablet 0.35 mg PO DAILY Label Comments: TAKE 1 TABLET BY MOUTH EVERY DAY estradiol 0.075 mg/24 hr patch semiweekly 1 patch TD ONCE Label Comments: APPLY 1 PATCH TOPICALLY TO THE SKIN 2 TIMES A WEEK DIRECTED albuterol sulfate 200 PUFFS HFA aerosol inhaler 1 - 2 puffs IH Q6HP PRN (Reason: Shortness Of Breath) Qty: 1 0RF prednisone [prednisone] 20 mg tablet 20 mg PO BID Qty: 10 0RF levofloxacin 500 mg tablet 500 mg PO DAILY Qty: 7 0RF valacyclovir 500 MG tablet 500 mg PO DAILY Label Comments: TAKE 1 TABLET BY MOUTH DAILY Referrals Follow up/Referrals: Tess Cantrell MD [Primary Care Provider] - See instructions Activity Restrictions/Add. Instructions Additional Instructions/Restrictions: Start antibiotic today. Be sure to complete entire prescription even if feeling better Monitor temp. Tylenol every 4 hours as needed and / or ibuprofen every 6 hours as needed ( As long as your primary care physician has told you that it ok to take both. For fever/aches/pains ER if no less than 101 despite Tylenol or Motrin Humidifier/vaporizer or hot steamy shower Inhaler every 4-6 hours as needed like we discussed. If unsure how to use it, ask pharmacist to demonstrate how. Should help open airways and improve cough, wheezing, and shortness of breath Mucinex during the day for your cough and cough suppressant only at night. Be sure to drink lots of water. Insurance may not cover a prescriptions for mucinex. Might be cheaper to get 400mg tablets and take 2 tablet in the morning, mid-day and evening with lots of water. *Promethazine DM cough syrup will cause drowsiness. Use only at night. No driving, operating machinery or caring for small children after taking it *Tessalon Perles will not cause drowsiness but use at bedtime to help stop cough so that you may get some rest. *Start steroid today. Helps with inflammation therefore, cough and wheezing. Follow directions on the package. Reviewed side effects. Patient reports taking them before. Follow up IMMEDIATELY for new or worsening of symptoms OR no noticeable improvement over the next 48-72 hours. 911 immediately for any life threatening symptoms such as chest pain or difficulty breathing Clinical Impressions Clinical Impression: Acute bronchitis Qualifiers: Bronchitis organism: unspecified organism Qualified Code(s): J20.9 - Acute bronchitis, unspecified Sinusitis Qualifiers: Sinusitis location: unspecified location Chronicity: unspecified Qualified Code(s): J32.9 - Chronic sinusitis, unspecified Stand Alone Forms Stand Alone Forms: Work/School Release Instructions Patient Instructions: Sinusitis, Acute Bronchitis, DI for Sinusitis Discharge ED Provider: Rosalva Aguila [facility] [place] H[place] General Stated complaint: vomiting, cough, congestion Time Seen by Provider: 10/27/22 20:07 His
[2022-10-27 20:20] LABS: UTC Influenza A Antigen Negative (Negative)
[2022-10-27 20:21] LABS: UTC Influenza B Antigen Negative (Negative)
[2022-10-27 20:51] VITALS: BP 139/93; PULSE 133; RESP 19; TEMP 37.6; O2SAT 98
== END 2022-10-27 21:08 | disposition home or self-care (01) ==
PROVIDERS: Emergency Provider Nurse Practitioner; PCP Family Medicine
DX: J20.9 Acute bronchitis, unspecified (principal); J32.9 Chronic sinusitis, unspecified
CPT/HCPCS: 87804; 96372; 99212; C9803; G0463; J0696; U0003; U0005

== ENCOUNTER 2023-02-05 17:01 | Emergency (ER) | payer MEDICAID, SELFPAY ==
[2023-02-05 17:02] VITALS: BP 127/80; PULSE 118; RESP 16; TEMP 37.3; O2SAT 96; BMI 36.1
[2023-02-05 17:23] VITALS: BP 127/80
[2023-02-05 17:30] VITALS: BP 127/88
--- NOTE | 2023-02-05 17:48 | HMH.EDGENADL ---
Discharge Plan Disposition Patient Disposition: Home, Self-Care Prescriptions Prescriptions: New ondansetron 4 mg tablet,disintegrating 4 mg PO Q6H PRN (Reason: nausea and vomiting) 5 Days Qty: 20 0RF No Action tramadol 50 mg tablet 50 mg PO Q6HP PRN (Reason: pain) Label Comments: TAKE 1 TABLET BY MOUTH EVERY 6 HOURS NEEDED FOR PAIN norethindrone (contraceptive) 0.35 mg tablet 0.35 mg PO DAILY Label Comments: TAKE 1 TABLET BY MOUTH EVERY DAY estradiol 0.075 mg/24 hr patch semiweekly 1 patch TD ONCE Label Comments: APPLY 1 PATCH TOPICALLY TO THE SKIN 2 TIMES A WEEK DIRECTED Qelbree 200 mg capsule,extended release 24hr 600 mg PO DAILY Qty: 90 1RF albuterol sulfate 200 PUFFS HFA aerosol inhaler 1 - 2 puffs IH Q6HP PRN (Reason: Shortness Of Breath) Qty: 1 0RF prednisone [prednisone] 20 mg tablet 20 mg PO BID Qty: 10 0RF levofloxacin 500 mg tablet 500 mg PO DAILY Qty: 7 0RF cefdinir 300 mg capsule 300 mg PO BID Qty: 20 0RF guaifenesin [Mucinex] 600 mg tablet extended release 12hr 600 mg PO BID PRN (Reason: cough) Qty: 20 0RF azithromycin [Zithromax Z-James] 250 mg tablet See Rx Instructions .ROUTE .COMPLEX 5 Days Qty: 6 0RF Rx Instructions: For 250 mg dose pack: take 500 mg today (day 1), then 250 mg for 4 days (days 2-5) ondansetron 4 mg tablet,disintegrating 4 mg PO Q8H PRN (Reason: nausea and vomiting) Qty: 10 0RF albuterol sulfate [Proventil HFA] 90 mcg/actuation HFA aerosol inhaler 1 inh inhalation Q6H PRN (Reason: shortness of breath or wheezing) Qty: 8.5 0RF valacyclovir 500 MG tablet 500 mg PO DAILY Label Comments: TAKE 1 TABLET BY MOUTH DAILY Referrals Follow up/Referrals: Tess Cantrell MD [Primary Care Provider] - See instructions Activity Restrictions/Add. Instructions Additional Instructions/Restrictions: Return to the emergency department as needed otherwise follow-up with primary care doctor next week. Clinical Impressions Clinical Impression: Nausea vomiting and diarrhea, Headache, Body aches, Acute viral syndrome Discharge ED Provider: Nona Araujo General Adult HPI General Chief complaint: Headache Stated complaint: vomiting, weakness, achy Time Seen by Provider: 02/05/23 17:48 History of Present Illness HPI narrative: Patient is a 42-year-old female with a history of adrenal adenoma and diabetes who presents today with nausea vomiting diarrhea and body aches over the last 24 hours. No significant abdominal pain no fevers or chills. No sick contacts that she is aware of no respiratory symptoms. States that it started out with some vomiting and diarrhea progressively worsened to where she has having body aches over the last day. Nonbloody nonbilious. Related Data Home Medications Medication Instructions Recorded Confirmed valacyclovir 500 mg tablet 500 mg PO DAILY Herpes simplex 03/17/21 08/18/22 norethindrone (contraceptive) 0.35 0.35 mg PO DAILY control 08/30/21 08/18/22 mg tablet tramadol 50 mg tablet 50 mg PO Q6HP PRN pain 08/30/21 08/18/22 estradiol 0.075 mg/24 hr 1 patch transdermal ONCE 04/30/22 08/18/22 semiweekly transdermal patch Previous Rx's Medication Instructions Recorded albuterol sulfate 90 mcg/actuation 1 - 2 puffs inhalation Q6HP PRN 10/04/21 aerosol inhaler Shortness Of Breath #1 ea levofloxacin 500 mg tablet 500 mg PO DAILY #7 tabs 09/20/22 prednisone 20 mg tablet 20 mg PO BID #10 tabs 09/20/22 albuterol sulfate 90 mcg/actuation 1 inh inhalation Q6H PRN shortness 10/27/22 aerosol inhaler (Proventil HFA) of breath or wheezing #8.5 grams azithromycin 250 mg tablet See Rx Instructions PO .COMPLEX 5 10/27/22 (Zithromax Z-James) days #6 tabs cefdinir 300 mg capsule 300 mg PO BID #20 caps 10/27/22 guaifenesin 600 mg tablet, 600 mg PO BID PRN cough #20 tabs 10/27/22 extended release 12 hr (Mucinex) ondansetron 4 mg disintegrating 4 mg PO Q
[2023-02-05 18:30] VITALS: BP 127/77; PULSE 94; O2SAT 95
--- NOTE | 2023-02-05 18:42 | PC.NURSE ---
PT MEDICATED FOR H/A
[2023-02-05 18:48] LABS: Basophils # 0.1 K/mm3 (0-0.2); Basophils % 1.3 % (0.1-2.0); Chloride 101 mmol/L (98-107); Eosinophils # 0.3 K/mm3 (0.0-0.4); Hematocrit 47.8 % (37.0-47.0); Hemoglobin 15.9 g/dL (12.2-16.2); Lymphocytes # 2.1 K/mm3 (0.7-4.5); Lymphocytes % 20.8 % (10-50); Mean Corpuscular HGB Conc 33.2 g/dL (31.8-35.4); Mean Corpuscular Hemoglobin 30.8 pg (27.0-31.2); Mean Corpuscular Volume 92.6 fl (81-99); Mean Platelet Volume 7.9 fl (7.4-10.4); Monocytes # 0.6 K/mm3 (0.1-1.0); Monocytes % 5.8 % (1.7-9.3); Neutrophils # 7.1 K/mm3 (1.8-7.8); Platelet Count 405 K/mm3 (142-424); Potassium 3.5 mmoL/L (3.5-5.1); Red Blood Count 5.16 M/mm3 (4.20-5.40); Red Cell Distribution Width 12.9 % (11.5-17.5); White Blood Count 10.2 K/mm3 (4.8-10.8)
[2023-02-05 18:50] LABS: Alanine Aminotransferase 20 U/L (12-78); Alkaline Phosphatase 94 U/L (38-126); Aspartate Amino Transferase 21 U/L (14-36); Bilirubin,Total 0.2 mg/dl (0.2-1.3); Blood Urea Nitrogen 10 mg/dl (7-17); Creatinine Clearance Estimated 134 mL/min (50-200); Estimated Glomerular Filt Rate 92 ml/min (>60); GFR (African American) 111 ML/MIN (>60)
[2023-02-05 18:51] LABS: Albumin Level 4.1 g/dl (3.5-5.0); Albumin/Globulin Ratio 1.6 (1.1-1.8); Calcium 8.2 mg/dl (8.4-10.2); Carbon Dioxide 32 mmol/L (22.0-30.0); Globulin 2.6 g/dL (1.3-3.2); Glucose 112 mg/dl (74-100); Lipase 46 U/L (23-300); Total Protein,Serum 6.7 g/dl (6.3-8.2)
[2023-02-05 19:00] VITALS: BP 120/69; PULSE 92; O2SAT 94
[2023-02-05 19:29] LABS: Anion Gap 9.5 mEq/L (5-15); Sodium 139 mmol/L (136-145)
[2023-02-05 19:34] VITALS: BP 119/74; PULSE 90; RESP 16; TEMP 37.1; O2SAT 94
== END 2023-02-05 19:35 | disposition home or self-care (01) ==
PROVIDERS: Emergency Provider Student in an Organized Health Care Education/Training Program; PCP Family Medicine
DX: R51.9 Headache, unspecified (principal); M79.18 Myalgia, other site; B34.9 Viral infection, unspecified; E11.9 Type 2 diabetes mellitus without complications
CPT/HCPCS: 80053; 83690; 85025; 96361; 96374; 96375; 99284; 99285; J2405

== ENCOUNTER 2023-03-08 15:57 | Emergency (ER) | payer OTHER, MEDICAID, SELFPAY ==
--- NOTE | 2023-03-08 16:26 | EXP.UTC ---
Discharge Plan Disposition Patient Disposition: Home, Self-Care Condition: Good Prescriptions Prescriptions: New fluticasone propionate [Flonase Allergy Relief] 50 mcg/actuation spray,suspension 1 - 2 spray intranasal DAILY Qty: 16 0RF Rx Instructions: administer into each nostril benzonatate 100 mg capsule 100 mg PO TID PRN (Reason: cough) Qty: 30 0RF No Action tramadol 50 mg tablet 50 mg PO Q6HP PRN (Reason: pain) Label Comments: TAKE 1 TABLET BY MOUTH EVERY 6 HOURS NEEDED FOR PAIN norethindrone (contraceptive) 0.35 mg tablet 0.35 mg PO DAILY Label Comments: TAKE 1 TABLET BY MOUTH EVERY DAY estradiol 0.075 mg/24 hr patch semiweekly 1 patch TD ONCE Label Comments: APPLY 1 PATCH TOPICALLY TO THE SKIN 2 TIMES A WEEK DIRECTED Qelbree 200 mg capsule,extended release 24hr 600 mg PO DAILY Qty: 90 1RF albuterol sulfate 200 PUFFS HFA aerosol inhaler 1 - 2 puffs IH Q6HP PRN (Reason: Shortness Of Breath) Qty: 1 0RF prednisone [prednisone] 20 mg tablet 20 mg PO BID Qty: 10 0RF levofloxacin 500 mg tablet 500 mg PO DAILY Qty: 7 0RF cefdinir 300 mg capsule 300 mg PO BID Qty: 20 0RF guaifenesin [Mucinex] 600 mg tablet extended release 12hr 600 mg PO BID PRN (Reason: cough) Qty: 20 0RF azithromycin [Zithromax Z-James] 250 mg tablet See Rx Instructions .ROUTE .COMPLEX 5 Days Qty: 6 0RF Rx Instructions: For 250 mg dose pack: take 500 mg today (day 1), then 250 mg for 4 days (days 2-5) ondansetron 4 mg tablet,disintegrating 4 mg PO Q8H PRN (Reason: nausea and vomiting) Qty: 10 0RF albuterol sulfate [Proventil HFA] 90 mcg/actuation HFA aerosol inhaler 1 inh inhalation Q6H PRN (Reason: shortness of breath or wheezing) Qty: 8.5 0RF ondansetron 4 mg tablet,disintegrating 4 mg PO Q6H PRN (Reason: nausea and vomiting) 5 Days Qty: 20 0RF valacyclovir 500 MG tablet 500 mg PO DAILY Label Comments: TAKE 1 TABLET BY MOUTH DAILY Referrals Follow up/Referrals: Tess Cantrell MD [Primary Care Provider] - See instructions Activity Restrictions/Add. Instructions Additional Instructions/Restrictions: *Monitor Temp, Over the counter Motrin or Tylenol as directed/as needed Tylenol every 4 hours and Motrin every 6 hours (as long as your family doctor has told you that you can take it) for fever or pain. and straight to ER if unable to lower temp less than 101.0 after medication given *Warm salt water gargles may help to soothe the throat *Throat Lozenges? *Warm fluids like tea with honey may help to soothe the throat? *Sleep elevated *Humidifier/Vaporizer Your throat swab was sent for culture. Those results are typically sent to your primary care. Be sure to follow up in 2-3 days with your family doctor/primary care physician if no improvement so they can review those result and treat if necessary. If you don?t have a primary care doctor, I recommend you get one but in the mean time, you will have to return to a walk in clinic Follow up IMMEDIATELY for new or worsening symptoms or no Noticeable improvement over the next 48-72 hours. 911 for difficulty breathing or swallowing Clinical Impressions Clinical Impression: URI (upper respiratory infection) Qualifiers: URI type: unspecified URI Qualified Code(s): J06.9 - Acute upper respiratory infection, unspecified Stand Alone Forms Stand Alone Forms: Work/School Release Instructions Patient Instructions: Sore Throat, DI for Sinusitis [place]charge ED Provider: [place]alva Aguila [facility] [place] Stated complaint: Headache, congestion,Sore throat Time Seen by Provider: 03/08/23 16:26 History of Present Illness Provider Complaint: Patient state that her daughter recently had strep throat, states that she is having sore throat, nasal congestion, cough and headache States that she feels like she may have strep throat now too States that she is s
[2023-03-08 16:29] VITALS: BP 131/88; PULSE 94; RESP 18; TEMP 37; O2SAT 99; BMI 32.0
[2023-03-08 16:39] LABS: UTC Strep Screen (Rapid) Negative (Negative)
[2023-03-08 16:54] VITALS: BP 131/88; PULSE 94; RESP 18; TEMP 37; O2SAT 99
== END 2023-03-08 17:09 | disposition home or self-care (01) ==
PROVIDERS: Emergency Provider Nurse Practitioner; PCP Family Medicine
DX: J06.9 Acute upper respiratory infection, unspecified (principal); R51.9 Headache, unspecified; F17.210 Nicotine dependence, cigarettes, uncomplicated
CPT/HCPCS: 87880; 96372; 99212; 99214; G0463; J0696

== ENCOUNTER → 2023-05-08 15:45 | Outpatient (CLI) | payer MEDICAID, SELFPAY ==
--- NOTE | 2023-05-08 15:54 | MM_ITS ---
PROCEDURE INFORMATION: Exam: MG Bilateral Screening 3D Mammography Exam date and time: 05/08/2023 3:46 PM Age: 43 years old Clinical indication: Screening examination TECHNIQUE: Imaging protocol: Bilateral Screening tomosynthesis and 2D mammography including computer-aided detection (CAD) when performed. COMPARISON: 1. MG MM DIG MAMM DX UNILAT RT CAD 02/11/2022 1:47 PM 2. MG MM DIG SCREENING MAMM BI W/CAD 01/31/2022 12:58 PM FINDINGS: MAMMOGRAPHY: Breast composition: There are scattered areas of fibroglandular density. Mass: 0.9 cm ovoid mass in the posterior third of the right lateral breast. Architectural distortion: None. Calcifications: No suspicious calcifications. Asymmetric density: None. Skin thickening: None. Axillary adenopathy: None. IMPRESSION: Patient to be recalled for spot compression views of the right breast in the CC and MLO projections, a full 90 degree lateral view, and right breast ultrasound for further evaluation of a right breast mass. ASSESSMENT: BI-RADS Category 0: Incomplete- Need Additional Imaging Evaluation and/or Prior Mammograms for Comparison
== END ==
PROVIDERS: PCP Family Medicine; Visit Provider Obstetrics & Gynecology Gynecology
DX: Z12.31 Encounter for screening mammogram for malignant neoplasm of breast (principal)
CPT/HCPCS: 77063; 77067

== ENCOUNTER 2023-05-14 20:27 | Emergency (ER) | payer OTHER, MEDICAID, SELFPAY ==
[2023-05-14] VITALS (7 sets, daily range): BP systolic 126–158; BP diastolic 76–123; PULSE 103–129; RESP 23; TEMP 37; O2SAT 96–100; BMI 33.7
--- NOTE | 2023-05-14 20:22 | PC.NURSE ---
SPOKE WITH KANE @ [facility], WILL CALL BACK
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
[2023-05-14 20:52] LABS: Chloride 101 mmol/L (98-107); Potassium 3.5 mmoL/L (3.5-5.1); Sodium 140 mmol/L (136-145)
[2023-05-14 20:55] LABS: Alanine Aminotransferase 28 U/L (12-78); Albumin Level 4.1 g/dl (3.5-5.0); Albumin/Globulin Ratio 1.4 (1.1-1.8); Alkaline Phosphatase 86 U/L (38-126); Anion Gap 14.5 mEq/L (5-15); Aspartate Amino Transferase 25 U/L (14-36); Blood Urea Nitrogen 9 mg/dl (7-17); Calcium 8.9 mg/dl (8.4-10.2); Carbon Dioxide 28 mmol/L (22.0-30.0); Creatinine Clearance Estimated 145 mL/min (50-200); Estimated Glomerular Filt Rate 109 ml/min (>60); GFR (African American) 132 ML/MIN (>60); Globulin 2.9 g/dL (1.3-3.2); Glucose 151 mg/dl (74-100)
[2023-05-14 20:57] LABS: Bilirubin,Total < 0.1 mg/dl (0.2-1.3); Ethyl Alcohol < 10 mg/dl (0-10)
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
[2023-05-14 21:06] LABS: Activated Partial Thrombo Time 26.7 seconds (22.8-30.6); INR 0.93 (0.9-1.1); Prothrombin Time 10.1 seconds (10.1-12.5)
[2023-05-14 21:23] LABS: Troponin I < 0.01 ng/ml (0.00-0.034)
[2023-05-14 21:27] LABS: Microscopic, Urine URINE MICROSCOPIC (MICROSCOPIC)
[2023-05-14 21:28] LABS: Appearance,Urine CLEAR (Clear); Bilirubin,Urine Negative (Negative); Blood, Urine 2+ (Negative); Color,Urine YELLOW (Yellow); Glucose,Urine (UA) Negative (Negative); Ketones,Urine Negative (Negative); Leukocyte Esterase,Urine TRACE (Negative); Nitrate,Urine Negative (Negative); Protein,Urine 1+ (Negative); Specific Gravity, Urine 1.025 (1.005-1.030); Urobilinogen,Urine 0.2 EU/dl (0.2)
[2023-05-14 21:43] LABS: Amphetamine/Metha Screen,Urine Negative ng/ml (<1000); Barbiturates Screen,Urine Negative ng/ml (<200)
[2023-05-14 21:44] LABS: Benzodiazepines Screen,Urine Negative ng/ml (<200)
[2023-05-14 21:45] LABS: Cannabinoid Screen,Urine Negative ng/ml (<50); Cocaine Screen,Urine Negative ng/ml (<300)
[2023-05-14 21:46] LABS: Methadone Screen,Urine Negative ng/ml (<300)
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
[2023-05-14 21:47] LABS: Opiate Screen,Urine Negative ng/ml (<300); Phencyclidine Screen,Urine Negative ng/ml (<25)
[2023-05-14 21:52] LABS: WBC,Urine Occasional #/hpf (0-3)
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
--- NOTE | 2023-05-14 22:58 | PC.NURSE ---
Cefazolin does not scan verified with Paris Hernández Rn
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
[2023-05-15] VITALS: BP 133/86; PULSE 105; PULSE 107; O2SAT 100; O2SAT 98
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
[2023-05-15 00:19] LABS: Basophils # 0.1 K/mm3 (0-0.2); Basophils % 0.4 % (0.1-2.0); Eosinophils # 0.8 K/mm3 (0.0-0.4); Eosinophils % 3.9 % (0.1-12.0); Hematocrit 44.2 % (37.0-47.0); Hemoglobin 14.7 g/dL (12.2-16.2); Lymphocytes # 5.5 K/mm3 (0.7-4.5); Lymphocytes % 26.7 % (10-50); Mean Corpuscular HGB Conc 33.3 g/dL (31.8-35.4); Mean Corpuscular Hemoglobin 30.6 pg (27.0-31.2); Mean Corpuscular Volume 91.9 fl (81-99); Mean Platelet Volume 8.5 fl (7.4-10.4); Monocytes # 0.8 K/mm3 (0.1-1.0); Monocytes % 4.1 % (1.7-9.3); Neutrophils # 13.3 K/mm3 (1.8-7.8); Platelet Count 467 K/mm3 (142-424); Red Blood Count 4.81 M/mm3 (4.20-5.40); Red Cell Distribution Width 13.1 % (11.5-17.5); White Blood Count 20.5 K/mm3 (4.8-10.8)
--- NOTE | 2023-05-15 00:23 | PC.NURSE ---
Pt requested to speak with nurse. Went in and spoke with patient, she advised she would have her take her to ED and she did not want to go by EMS. I spoke with patient and explained and she still wanted to go POV. Spoke with MD about pt's request and she was agreeable with pt's choice but advised to have her sign new transfer record.
--- NOTE | 2023-05-15 00:25 | PC.NURSE ---
Called report to [facility], s/w Le RODRIGUEZ Charge
[2023-05-15 00:28] VITALS: BP 133/86; PULSE 96; RESP 21; TEMP 37; O2SAT 96
[2023-05-15 00:31] LABS: MANUAL DIFFERENTIAL MANUAL DIFFERENTIAL (MANUAL DIFF)
[2023-05-15 02:05] LABS: Eosinophils % 3 % (0-3); Lymphocytes % 28 % (10-50); Monocytes % 1 % (2-9); Neutrophils % 68 % (42-76); Platelet Estimate Normal; RBC Morphology Normal; Total Cells Counted 100
== END 2023-05-15 00:30 | disposition short-term general hospital (02) ==
PROVIDERS: Emergency Provider Emergency Medicine; PCP Family Medicine
DX: S06.0X1A Concussion with loss of consciousness of 30 minutes or less, initial encounter (principal); S09.8XXA Other specified injuries of head, initial encounter; S01.01XA Laceration without foreign body of scalp, initial encounter; F17.210 Nicotine dependence, cigarettes, uncomplicated; F41.9 Anxiety disorder, unspecified; F90.9 Attention-deficit hyperactivity disorder, unspecified type; V43.62XA Car passenger injured in collision with other type car in traffic accident, initial encounter
CPT/HCPCS: 13121; 13122; 70450; 71045; 71250; 72020; 72125; 72128; 72131; 72170; 74176; 80053; 80305; 81001; 84484; 85007; 85025; 85610; 85730; 96361; 96365; 96374; 96375; 99291; G0390; J0131

== ENCOUNTER → 2023-05-18 14:10 | Outpatient (CLI) | payer MEDICAID, SELFPAY ==
--- NOTE | 2023-05-18 14:14 | MM_ITS ---
PROCEDURE INFORMATION: Exam: US Right Breast, Complete MG Right Diagnostic Breast Tomosynthesis Exam date and time: 05/18/2023 2:16 PM Age: 43 years old Clinical indication: Patient recalled on the basis of a screening mammogram for further evaluation; Right breast; mass TECHNIQUE: Imaging protocol: Complete ultrasound of all four quadrants of the right breast and the retroareolar regions, including ultrasound of the axilla when performed. Right Diagnostic tomosynthesis and 2D mammography including computer-aided detection (CAD) when performed. Unilateral or bilateral exam. COMPARISON: 1. MG MM DIG SCREENING MAMM BI W/CAD 05/08/2023 3:46 PM 2. MG MM DIG MAMM DX UNILAT RT CAD 02/11/2022 1:47 PM FINDINGS: MAMMOGRAPHY: Digital diagnostic spot compression views of the posterior right lower outer quadrant demonstrates a persistent lobulated 0.9 cm mass without associated distortion. ULTRASOUND: Sonographic images of the right breast including the retroareolar region, all 4 quadrants and the axilla do not demonstrate any solid masses. Cluster of cysts with a combined dimension of 0.8 cm is noted in the deep 7 o'clock axis most closely corresponding to the mass on mammography. Additional cluster of subcentimeter cysts with a combined dimension is noted in the superficial 9 o'clock axis measuring 0.9 cm in greatest dimension. No architectural distortion or acoustical shadowing. No skin thickening or axillary adenopathy. IMPRESSION: Mass on screening mammography corresponds to underlying cystic change sonographically. There is no mammographic evidence of malignancy.Annual bilateral mammographic screening is recommended unless otherwise clinically indicated. ASSESSMENT: BI-RADS Category 2: Benign
== END ==
LOC: RAD 14:10
PROVIDERS: PCP Family Medicine; Visit Provider Obstetrics & Gynecology Gynecology
DX: R92.8 Other abnormal and inconclusive findings on diagnostic imaging of breast (principal)
CPT/HCPCS: 76641; 77061; 77065; G0279

== ENCOUNTER 2023-06-03 12:09 | Emergency (ER) | payer MEDICAID, SELFPAY ==
[2023-06-03 12:20] VITALS: BP 121/76; PULSE 99; RESP 18; TEMP 36.7; O2SAT 96; BMI 33.1
--- NOTE | 2023-06-03 12:35 | EXP.UTC ---
Discharge Plan Disposition Patient Disposition: Home, Self-Care Condition: Good Prescriptions Prescriptions: New cephalexin 500 mg capsule 500 mg PO QID 7 Days Qty: 28 0RF mupirocin 2 % ointment 1 applic topical TID 10 Days Qty: 22 0RF Rx Instructions: apply to area as directed No Action estrogens-methyltestosterone 0.625-1.25 mg tablet 1 tab PO DAILY sumatriptan succinate 25 mg tablet 25 mg PO DAILY amitriptyline 25 mg tablet 25 mg PO DAILY Referrals Follow up/Referrals: Tess Cantrell MD [Primary Care Provider] - See instructions Activity Restrictions/Add. Instructions Additional Instructions/Restrictions: *Start antibiotic(s) immediately and be sure to take as ordered for the FULL length of time although you may be feeling better or start to see improvement in the next 24-48 hours *Monitor closely. Outlined redness so that you can monitor easier. Follow up immediately for new or worsening symptoms including but not limited to redness, swelling, streaking from site fever or chills. *Warm compress 15 minutes 3-4 times day *Never squeeze or pop these on your own. Seek immediate medical attention next time this occurs *Monitor Temp. Tylenol every 4 hours as needed and ibuprofen every 6 hours as needed (as long as your primary care doctor has told you that it is ok to take both. For fever, aches, pain. ER if no less that 101 despite Tylenol and ibuprofen ?Follow up with your family doctor/primary care physician in the next 48-72 hours if no improvement Clinical Impressions Clinical Impression: Cellulitis Qualifiers: Site of cellulitis: unspecified site Qualified Code(s): L03.90 - Cellulitis, unspecified Instructions Patient Instructions: Cellulitis, Cephalexin, Mupirocin Discharge ED Provider: Rosalva Aguila [facility] [place] General Stated complaint: Possible spider bite on back Mode of Arrival: Ambulatory Source of Information: Patient Limitations: No Limitations Time Seen by Provider: 06/03/23 12:36 Description of Symptoms (Recalled from Triage Doc. by RN): PATIENT C/O POSSIBLE SPIDER BITE TO LEFT SIDE OF BACK X 2 DAYS. ALSO REPORTS CHILLS THIS MORNING HEENT Symptoms (Recalled from RN notes): No Resp Symptoms (Recalled from RN notes): No Skin Symptoms (Recalled from RN notes): Yes MS Symptoms (Recalled from RN notes): No Functional Status (Recalled from RN notes): WNL History of Present Illness Provider Complaint: Patient states that she was outside mowing and seen several spiders and had to move a vehicle that was sitting and seen several spiders in it then started feeling a burning sensation on her left shoulder are and felt like something bite her States that she has a red raised warm area on her left shoulder that is sore to touch so she came in Related Data Home Medications Medication Instructions Recorded Confirmed amitriptyline 25 mg tablet 25 mg PO DAILY . 06/03/23 06/03/23 esterified 1 tab PO DAILY . 06/03/23 06/03/23 estrogens-methyltestosterone 0.625 mg-1.25 mg tablet sumatriptan succinate 25 mg tablet 25 mg PO DAILY . 06/03/23 06/03/23 Previous Rx's Medication Instructions Recorded cephalexin 500 mg capsule 500 mg PO QID 7 days #28 caps 06/03/23 mupirocin 2 % topical ointment 1 applic topical TID 10 days #22 06/03/23 grams Allergies Allergy/AdvReac Type Severity Reaction Status Date / Time hydrocodone Allergy Verified 06/03/23 12:32 Worker's Comp Is this a Worker's Comp case?: No [facility] Disclaimer: The information contained in this section may have been updated after the patient was seen, as this information can be updated by other users. Medical History Anxiety Attention deficit disorder (ADD) in adult Surgical History H/O right knee surgery History of cholecystectomy History of hysterectomy History of tonsillectom
[2023-06-03 12:40] VITALS: BP 121/76; PULSE 99; RESP 18; TEMP 36.7; O2SAT 96
== END 2023-06-03 12:43 | disposition home or self-care (01) ==
PROVIDERS: Emergency Provider Nurse Practitioner; PCP Family Medicine
DX: L03.114 Cellulitis of left upper limb (principal); F17.210 Nicotine dependence, cigarettes, uncomplicated; F41.9 Anxiety disorder, unspecified; F90.0 Attention-deficit hyperactivity disorder, predominantly inattentive type
CPT/HCPCS: 99212; 99214; G0463

== ENCOUNTER 2023-07-02 10:30 | Outpatient (RCR) | payer MEDICAID, SELFPAY | END 2023-07-02 10:35 | disposition home or self-care (01) | LOC: PT 10:30 | PROVIDERS: PCP Family Medicine; Visit Provider Family Medicine Sports Medicine | DX: S06.0X1A Concussion with loss of consciousness of 30 minutes or less, initial encounter (principal); G44.309 Post-traumatic headache, unspecified, not intractable | CPT/HCPCS: 20560; 20561; 97010; 97014; 97110; 97163; G0283 ==

== ENCOUNTER 2023-07-02 13:00 | Outpatient (RCR) | payer MEDICAID, SELFPAY ==
--- NOTE | 2023-06-12 10:33 | HMH.SLAPHASI ---
Speech & Language Evaluation Speech/Language Aphasia Evaluation Start: 06/12/23 09:46 Freq: once Status: Complete Protocol: Document 06/11/23 15:15 DAKOTAYAHAIRA (Rec: 06/12/23 10:33 MICHAEL [id number]) Aphasia Assessment/Goals/Plan Assessment Date of Evaluation: 06/11/23 Evaluation Type Initial Certification Assessment/Problems Dejah Serrano presents at [facility] at this date to complete a cognitive- linguistic evaluation per MD order. Does Patient Qualify for Service Yes Qualify/Failure Comment Based on assessment results, clinical observation, and patient interview, Dejah Serrano would benefit from skilled speech therapy services 1-2x/ week to address cognitive- linguistic deficits. Plan Pt will be seen # times/week 2 for # weeks 12 Anticipate reaching STG in # weeks 8 Anticipate reaching LTG in # weeks 12 Pt/Guardian verbally ack understanding Yes of dx/prognosis/goals G -code Required No STG-Reading Comprehension Reading Paragraphs & Ans Questions 75 STG-Attending/Orientation/Memory Delayed Recall 70 Attention/Concentration 70 Memory Recall 70 STG-Comparative/Linguistic Skills Thought Organization 75 Categorization Ability 70 STG-Divergent Thinking Deductive Reasoning 70 Fpc Goals Increase cognitive skills to communicate Yes: 75 w/family & friends Education Instructions provided Discussed assessment results, goals to be added to POC, and answered patient's questions regarding skilled speech therapy, all of which she expressed understanding. Pt/Caregiver Able to Recall Information Able to recall/restate Reinforcement needed No Speech & Language HPI History Present Illness Rehab Services Assessed Speech therapy Is this evaluation r/t stroke? No Language [place] Lang/Spoken in Home [place] Education/Learning/Family Last School Grade Completed College Learning Method Preference One-on-One Instruction, Demonstration,Discussion Aphasia Evaluations Communication Speech Intelligibility Dejah Serrano is 100% intelligible to unfamiliar listeners with unknown context . Auditory Comprehension Yes: Word Le
== END 2023-07-02 14:00 | disposition home or self-care (01) ==
LOC: ST 13:00
PROVIDERS: PCP Family Medicine; Visit Provider Family Medicine Sports Medicine
DX: S06.0X1A Concussion with loss of consciousness of 30 minutes or less, initial encounter (principal); G44.309 Post-traumatic headache, unspecified, not intractable
CPT/HCPCS: 92523; 97129; 97130

== ENCOUNTER 2023-07-02 14:00 | Outpatient (RCR) | payer MEDICAID, SELFPAY | END 2023-07-02 14:05 | disposition home or self-care (01) | LOC: OT 14:00 | PROVIDERS: PCP Family Medicine; Visit Provider Family Medicine Sports Medicine | DX: S06.0X1A Concussion with loss of consciousness of 30 minutes or less, initial encounter (principal); G44.309 Post-traumatic headache, unspecified, not intractable | CPT/HCPCS: 97110; 97140; 97165; 97530 ==

== ENCOUNTER 2024-03-16 17:57 | Emergency (ER) | payer MEDICAID, SELFPAY ==
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
[2024-03-16 19:10] VITALS: BP 126/73; PULSE 105; RESP 18; TEMP 36.6; O2SAT 96; BMI 34.7
[2024-03-16 19:19] LABS: Apearance,Urine Clear (Clear); Bilirubin,Urine Negative (Negative); Blood, Urine Negative (Negative); Color,Urine Yellow (Yellow); Glucose,Urine (UA) Negative (Negative); Ketones,Urine Negative (Negative); PH,Urine 5.5 (5.0-8.5); Protein,Urine Negative (Negative); UTC Leukocyte Esterase,Urine Trace (Negative); UTC Nitrate,Urine Negative (Negative); Urobilinogen,Urine 0.2 EU/dl (0.2)
[2024-03-16 19:21] LABS: UTC Strep Screen (Rapid) Negative (Negative)
[2024-03-16] MEDS: DEXAMETHASONE 4MG/ML 1ML VIAL 8 MG IM (20:00)
[2024-03-16] MEDS: LIDOCAINE 1% 5ML PF VIAL IM (20:00)
[2024-03-16] MEDS: cefTRIAXone 1GM VIAL 1 GM IM (20:00)
[2024-03-16 20:28] VITALS: BP 126/73; PULSE 105; RESP 18; TEMP 36.6; O2SAT 96
== END 2024-03-16 20:28 | disposition home or self-care (01) ==
PROVIDERS: Emergency Provider Nurse Practitioner Family; PCP Family Medicine
DX: J01.90 Acute sinusitis, unspecified (principal); M77.01 Medial epicondylitis, right elbow; H92.03 Otalgia, bilateral; R09.81 Nasal congestion; F17.210 Nicotine dependence, cigarettes, uncomplicated
CPT/HCPCS: 81003; 87086; 87880; 96372; 99212; 99214; G0463; J0696

== ENCOUNTER 2024-05-19 10:30 | Emergency (ER) | payer MEDICAID, SELFPAY ==
[2024-05-19 10:40] VITALS: BP 111/67; PULSE 98; RESP 20; TEMP 36.7; O2SAT 97; BMI 37.0
--- NOTE | 2024-05-19 10:59 | ED_ITS ---
Discharge Plan Disposition Patient Disposition: Home, Self-Care Condition: Good Prescriptions Prescriptions: New hydroxyzine HCl 25 mg tablet 25 mg PO TID PRN (Reason: itching) Qty: 30 1RF No Action estrogens-methyltestosterone 0.625-1.25 mg tablet 1 tab PO DAILY valacyclovir 500 mg tablet 500 mg PO DAILY metformin 500 mg tablet extended release 24 hr 500 mg PO DAILY Patient Comments: TAKE 2 TABLETS BY MOUTH ONCE DAILY WITH BREAKFAST atomoxetine 80 mg capsule 80 mg PO DAILY Patient Comments: TAKE 1 CAPSULE BY MOUTH ONCE DAILY Referrals Follow up/Referrals: Michael Wray MD [Primary Care Provider] - See instructions Activity Restrictions/Add. Instructions Additional Instructions/Restrictions: Use Flonase daily. Take medication as prescribed. If symptoms persist or worsen, return to clinic or follow up with PCP. Clinical Impressions Clinical Impression: Insect bite, Eustachian tube dysfunction Stand Alone Forms Stand Alone Forms: Work/School Release Instructions Patient Instructions: DI for Insect Bites and Stings, DI for Eustachian Tube Dysfunction-Adult Discharge ED Provider: Romy Snyder [facility] General Stated complaint: itching in back and arms, congestion Mode of Arrival: Ambulatory Source of Information: Patient Limitations: No Limitations Time Seen by Provider: 05/19/24 10:55 Description of Symptoms (Recalled from Triage Doc. by RN): PATIENT C/O ITCHY SPOTS TO FEET, ARMS, BACK AND ANKLES, FEVER, RIGHT EAR PAIN, CONGESTION, AND NAUSEA X 4 DAYS HEENT Symptoms (Recalled from RN notes): Yes Resp Symptoms (Recalled from RN notes): No Skin Symptoms (Recalled from RN notes): Yes MS Symptoms (Recalled from RN notes): No Functional Status (Recalled from RN notes): WNL History of Present Illness Provider Complaint: Pt reports not feeling well for the last 4 days. She states that she has random spots that itch and worries she may have caught something from the [employer] where she works. She further reports right ear pain and congestion. Related Data Home Medications Medication Instructions Recorded Confirmed atomoxetine 80 mg capsule 80 mg PO DAILY 05/19/24 05/19/24 esterified 1 tab PO DAILY 05/19/24 05/19/24 estrogens-methyltestosterone 0.625 mg-1.25 mg tablet metformin 500 mg tablet,extended 500 mg PO DAILY 05/19/24 05/19/24 release 24 hr valacyclovir 500 mg tablet 500 mg PO DAILY 05/19/24 05/19/24 Previous Rx's Medication Instructions Recorded hydroxyzine HCl 25 mg tablet 25 mg PO TID PRN itching #30 tabs 05/19/24 Allergies Allergy/AdvReac Type Severity Reaction Status Date / Time hydrocodone Allergy Verified 03/16/24 19:22 Worker's Comp Is this a Worker's Comp case?: No [facility] Disclaimer: The information contained in this section may have been updated after the patient was seen, as this information can be updated by other users. Medical History (Updated 05/19/24 @ 11:06 by Romy Snyder APRN) Hyperlipidemia Diabetes mellitus, type 2 COPD (chronic obstructive pulmonary disease) Insomnia Anxiety Attention deficit disorder (ADD) in adult Surgical History History of tonsillectomy H/O right knee surgery History of cholecystectomy History of hysterectomy Family History Other Diabetes Heart attack Social History Smoking Status: Current every day smoker tobacco type: cigarettes packs per day: 1 alcohol intake: never current occupational status: student and other Travel in the last 8 weeks: None number of children: 4 ROS Obtained: Yes All systems reviewed & no additional complaints except as documented Constitutional Constitutional: Reports system reviewed and no additional complaints, except as documented Eyes Eyes: Reports system reviewed and no additional complaints, except as documented ENT Ears, Nose, Mouth, and Throat: Reports system reviewed and no additional complaints, except as documented, Reports otalgia, Reports nasal congestion and Reports nasal discharge Cardiovascular Cardiovascular: Reports system reviewed and no additional complaints, except as documented Respiratory Respiratory: Reports system reviewed and no additional complaints, except as documented Gastrointestinal Gastrointestingal: Reports system reviewed and no additional complaints, except as documented Genitourinary Female Genitourinary: Reports system reviewed and no additional complaints, except as documented Musculoskeletal Musculoskeletal: Reports system reviewed and no additional complaints, except as documented Integumentary/Breasts Skin/Breast: Reports system reviewed and no additional complaints, except as documented and Reports pruritus Comments: tiny spots over skin Neurologic Neurologic: Reports system reviewed and no additional complaints, except as documented Endocrine Endocrine: Reports system reviewed and no additional complaints, except as documented Hematologic/Lymphatic Henatologic/Lymphatic: Reports system reviewed and no additional complaints, except as documented Allergic/Immunologic Allergic/Immunologic: Reports system reviewed and no additional complaints, except as documented Physical Exam General General appearance: alert and in no apparent distress Head Head exam: normocephalic Eye Eye exam: Present normal appearance ENT ENT exam: Present mucous membranes moist Expanded ENT Exam External ear exam: Present normal external inspection TM/Canal exam: Right TM: bulging, effusion and loss of landmarks Nose exam: Absent sinus tenderness Nasal speculum exam: Bilateral: other (clear drainage) Mouth exam: Present normal external inspection Teeth exam: Present normal inspection Throat exam: Present normal inspection Neck Neck exam: Present normal inspection; Absent lymphadenopathy Chest Chest inspection: Present normal inspection and symmetric chest wall rise Respiratory Respiratory exam: Present normal lung sounds bilaterally Cardiovascular Cardiovascular exam: Present normal rhythm, tachycardia and normal heart sounds Abdominal Exam Abdominal exam: Present soft and normal bowel sounds Back Exam Back exam: Present normal inspection Neurological Exam Neurological exam: Present alert and oriented X3 Psychiatric Psychiatric exam: Present normal affect and normal mood Skin Skin exam: Present other Expanded Skin Exam Type of lesion: Present bite/sting Distribution: generalized Description: Present size (pin head sized bites. Very few noted. No bites between fingers/toes. No areas in a straight line. No redness or swelling.) Lymphatic Lymphatic Findings: no adenopathy Medical Decision Making Matteo Inquiry Pt receiving controlled substance: No Matteo was queried for this patient: No Vital Signs: 05/19/24 10:40 Temperature 98.0 F Temperature Source Oral Pulse Rate [Left Brachial] 98 H Respiratory Rate 20 Blood Pressure [Left Arm] 111/67 Blood Pressure Mean [Left Arm] 81 Blood Pressure Source [Left Arm] Automatic Cuff Blood Pressure Position [Left Arm] Sitting 02 Sat by Pulse Oximetry 97 Oxygen Delivery Method Room Air
[2024-05-19 11:06] VITALS: BP 111/67; PULSE 98; RESP 20; TEMP 36.7; O2SAT 97
== END 2024-05-19 11:09 | disposition home or self-care (01) ==
PROVIDERS: Emergency Provider Nurse Practitioner Family; PCP Emergency Medicine
DX: H69.91 Unspecified Eustachian tube disorder, right ear (principal); H92.01 Otalgia, right ear; R21 Rash and other nonspecific skin eruption; W57.XXXA Bitten or stung by nonvenomous insect and other nonvenomous arthropods, initial encounter
CPT/HCPCS: 99212; 99214; G0463

== ENCOUNTER 2024-07-15 16:43 | Emergency (ER) | payer MEDICAID, SELFPAY ==
--- NOTE | 2024-07-15 18:05 | EXP.UTC ---
Discharge Plan Disposition Patient Disposition: Home, Self-Care Condition: Good Prescriptions Prescriptions: New permethrin 5 % cream 1 applic topical Q14D Qty: 60 1RF Rx Instructions: apply second treatment 14 days after first treatment if live lice remain cephalexin 500 mg capsule 500 mg PO QID Qty: 40 0RF methylprednisolone 4 mg Tablets,Dose Pack 4 mg PO DIRECTED 6 Days Qty: 21 0RF Rx Instructions: Take 1 pack as directed for 6 days No Action atomoxetine 80 mg capsule 80 mg PO DAILY Qty: 30 2RF estrogens-methyltestosterone 0.625-1.25 mg tablet 1 tab PO DAILY valacyclovir 500 mg tablet 500 mg PO DAILY metformin 500 mg tablet extended release 24 hr 500 mg PO DAILY Patient Comments: TAKE 2 TABLETS BY MOUTH ONCE DAILY WITH BREAKFAST hydroxyzine HCl 25 mg tablet 25 mg PO TID PRN (Reason: itching) Qty: 30 1RF Referrals Follow up/Referrals: Provider,Referral, MD [Primary Care Provider] - See instructions Activity Restrictions/Add. Instructions Additional Instructions/Restrictions: Drink plenty of fluids. Take tylenol or ibuprofen for pain or fever. Take the medications as directed. Follow up with your regular doctor. GO TO THE ER FOR ANY WORSENING SYMPTOMS Clinical Impressions Clinical Impression: Sinusitis, Otitis media, Skin rash Stand Alone Forms Stand Alone Forms: Work/School Release Instructions Patient Instructions: Sinusitis, DI for Sinusitis Print Language Print Language: Namibian Discharge ED Provider: Eddi Mcnair [facility] [place] HPI General Stated complaint: Sore throat,bumps all over body,right earache Time Seen by Provider: 07/15/24 18:05 Related Data Home Medications ?Medication ?Instructions ?Recorded ?Confirmed esterified 1 tab PO DAILY 05/19/24 05/19/24 estrogens-methyltestosterone 0.625 mg-1.25 mg tablet metformin 500 mg tablet,extended 500 mg PO DAILY 05/19/24 05/19/24 release 24 hr valacyclovir 500 mg tablet 500 mg PO DAILY 05/19/24 05/19/24 Previous Rx's ?Medication ?Instructions ?Recorded hydroxyzine HCl 25 mg tablet 25 mg PO TID PRN itching #30 tabs 05/19/24 atomoxetine 80 mg capsule 80 mg PO DAILY #30 caps 06/08/24 cephalexin 500 mg capsule 500 mg PO QID #40 caps 07/15/24 methylprednisolone 4 mg tablets in 4 mg PO DIRECTED 6 days #21 tabs 07/15/24 a dose pack permethrin 5 % topical cream 1 applic topical Q14D 2 doses #60 07/15/24 grams Allergies Allergy/AdvReac Type Severity Reaction Status Date / Time hydrocodone Allergy Verified 03/16/24 19:22 [facility] Disclaimer: The information contained in this section may have been updated after the patient was seen, as this information can be updated by other users. Medical History (Updated 07/15/24 @ 18:48 by Eddi Mcnair APRN) Hyperlipidemia Diabetes mellitus, type 2 COPD (chronic obstructive pulmonary disease) Insomnia Anxiety Attention deficit disorder (ADD) in adult Surgical History History of tonsillectomy H/O right knee surgery History of cholecystectomy History of hysterectomy Family History Other Diabetes Heart attack Social History Smoking Status: Current every day smoker tobacco type: cigarettes packs per day: 1 alcohol intake: never current occupational status: student and other Travel in the last 8 weeks: None number of children: 4 ROS Obtained: Yes All systems reviewed & no additional complaints except as documented Constitutional Constitutional: Reports chills and Reports fever(s) Eyes Eyes: Denies eye discharge ENT Ears, Nose, Mouth, and Throat: Reports as per HPI Cardiovascular Cardiovascular: Denies chest pain Respiratory Respiratory: Denies chest congestion and Reports cough Gastrointestinal Gastrointestingal: Rep
[2024-07-15 18:25] VITALS: BP 136/82; PULSE 107; RESP 20; TEMP 36.7; O2SAT 97; BMI 52.2
[2024-07-15 19:10] VITALS: BP 136/82; PULSE 107; RESP 20; TEMP 36.7; O2SAT 97
[2024-07-16 14:51] LABS: UTC Strep Screen (Rapid) Negative (Negative)
== END 2024-07-15 19:15 | disposition home or self-care (01) ==
PROVIDERS: Emergency Provider Nurse Practitioner Family
DX: H66.91 Otitis media, unspecified, right ear (principal); J01.90 Acute sinusitis, unspecified; R21 Rash and other nonspecific skin eruption; R07.0 Pain in throat
CPT/HCPCS: 87635; 87880; 99212; 99214; G0463

== ENCOUNTER 2024-09-06 15:15 | Emergency (ER) | payer OTHER, BC, MEDICAID, SELFPAY ==
[2024-09-06 15:25] VITALS: BP 134/79; PULSE 114; RESP 20; TEMP 36.8; O2SAT 96; BMI 36.7
--- NOTE | 2024-09-06 15:32 | ED_ITS ---
Discharge Plan Disposition Patient Disposition: Home, Self-Care Condition: Good Prescriptions Prescriptions: New methylprednisolone 4 mg Tablets,Dose Pack 4 mg PO DIRECTED 6 Days Qty: 21 0RF Rx Instructions: Take 1 pack as directed for 6 days hydroxyzine pamoate [Vistaril] 25 mg capsule 25 mg PO Q6H PRN (Reason: itching) Qty: 30 0RF kaymbofs-qgvbriavt-DW 3.5-10,000-1 mg/mL-unit/mL-% solution 4 drp Ear-Left Q8H 7 Days Qty: 10 0RF triamcinolone acetonide 0.1 % cream 1 applic topical BID PRN (Reason: itching) Qty: 30 0RF No Action estrogens-methyltestosterone 0.625-1.25 mg tablet 1 tab PO DAILY phentermine 37.5 mg tablet 37.5 mg PO DAILY valacyclovir 500 mg tablet 500 mg PO DAILY docusate sodium 100 mg capsule 100 mg PO DAILY atomoxetine 100 mg capsule 100 mg PO DAILY Patient Comments: TAKE 1 CAPSULE BY MOUTH ONCE DAILY Referrals Follow up/Referrals: Leni Oneil MD [Referring] - See instructions Tess Cantrell MD [Primary Care Provider] - See instructions Activity Restrictions/Add. Instructions Additional Instructions/Restrictions: Take the medications as directed. Follow up with the train inspector (Dr. Oneil). I put in a referral. Her office phone number will be on this paper work. The vistaril (hydroxyzine) will make you drowsy, so don't drive or operate heavy machinery after taking it. Don't put the topical steroids (triamcinolone) on your face or your groin. Follow up with your regular doctor. GO TO THE ER FOR ANY WORSENING SYMPTOMS OR CONCERNS Clinical Impressions Clinical Impression: Chronic pruritus Stand Alone Forms Stand Alone Forms: Work/School Release Instructions Patient Instructions: DI for Itching, Hydroxyzine Print Language Print Language: Serbian Discharge ED Provider: Eddi Mcnair [facility] [place] HPI General Stated complaint: poss scabies, diarrhea Time Seen by Provider: 09/06/24 15:32 History of Present Illness Provider Complaint: She is back with complaints of continued itching. She has been treated for scabies. She has also been prescribed ivermectin by a clinic in [place]. She states the ivermectin helped, but she is out of it and her itc adina is coming back. Related Data Home Medications ?Medication ?Instructions ?Recorded ?Confirmed atomoxetine 100 mg capsule 100 mg PO DAILY 09/06/24 09/06/24 docusate sodium 100 mg capsule 100 mg PO DAILY 09/06/24 09/06/24 esterified 1 tab PO DAILY 09/06/24 09/06/24 estrogens-methyltestosterone 0.625 mg-1.25 mg tablet phentermine 37.5 mg tablet 37.5 mg PO DAILY 09/06/24 09/06/24 valacyclovir 500 mg tablet 500 mg PO DAILY 09/06/24 09/06/24 Previous Rx's ?Medication ?Instructions ?Recorded hydroxyzine pamoate 25 mg capsule 25 mg PO Q6H PRN itching #30 caps 09/06/24 (Vistaril) methylprednisolone 4 mg tablets in 4 mg PO DIRECTED 6 days #21 tabs 09/06/24 a dose pack ybnqclov-bxujtxyya-zlrkreomc 3.5 4 drp Ear-Left Q8H 7 days #10 mL 09/06/24 mg/mL-10,000 unit/mL-1 % ear solution triamcinolone acetonide 0.1 % 1 applic topical BID PRN itching 09/06/24 topical cream #30 grams Allergies Allergy/AdvReac Type Severity Reaction Status Date / Time hydrocodone Allergy Verified 08/26/24 09:42 [facility] Disclaimer: The information contained in this section may have been updated after the patient was seen, as this information can be updated by other users. Medical History (Updated 09/06/24 @ 16:08 by Eddi Mcnair APRN) Hyperlipidemia Diabetes mellitus, type 2 COPD (chronic obstructive pulmonary disease) Insomnia Anxiety Attention deficit disorder (ADD) in adult Surgical History History of tonsillectomy H/O right knee surgery History of cholecystectomy History of hysterectomy Family History Other Diabetes Heart attack Social History Smoking Status: Current every day smoker tobacco type: cigarettes packs per day: 1 alcohol intake: never current occupational status: student and other Travel in the last 8 weeks: None number of children: 4 ROS Obtained: Yes All systems reviewed & no additional complaints except as documented Constitutional Constitutional: Denies chills and Denies fever(s) Eyes Eyes: Denies eye discharge ENT Ears, Nose, Mouth, and Throat: Denies dizziness, Denies otalgia and Denies sore throat Cardiovascular Cardiovascular: Denies chest pain Respiratory Respiratory: Denies shortness of breath, Denies chest congestion, Denies cough, Denies stridor and Denies wheezing Gastrointestinal Gastrointestingal: Denies nausea or vomiting Musculoskeletal Musculoskeletal: Reports system reviewed and no additional complaints, except as documented and Denies arthralgias Integumentary/Breasts Skin/Breast: Denies rash Neurologic Neurologic: Denies dizziness and Denies paresthesias Allergic/Immunologic Allergic/Immunologic: Denies wheezing Physical Exam General General appearance: alert and in no apparent distress Head Head exam: atraumatic, normocephalic and normal inspection Eye Eye exam: Present normal appearance, PERRL and EOMI ENT ENT exam: Present normal exam, normal oropharynx, mucous membranes moist, TM's normal bilaterally and normal external ear exam Neck Neck exam: Present normal inspection, full ROM and trachea midline; Absent meningismus or lymphadenopathy Chest Chest inspection: Present normal inspection and symmetric chest wall rise; Absent tenderness Respiratory Respiratory exam: Present normal lung sounds bilaterally; Absent respiratory distress Cardiovascular Cardiovascular exam: Present regular rate and normal rhythm; Absent JVD Abdominal Exam Abdominal exam: Present soft and normal bowel sounds; Absent distention, tenderness or guarding Extremities Exam Extremities exam: Present normal inspection, full ROM and normal capillary refill; Absent calf tenderness Back Exam Back exam: Present normal inspection; Absent tenderness Neurological Exam Neurological exam: Present alert and oriented X3 Psychiatric Psychiatric exam: Present normal affect and normal mood Skin Skin exam: Present warm, dry, intact and normal color Lymphatic Lymphatic Findings: no adenopathy Medical Decision Making Medical Records Medical records reviewed: No I reviewed the patient's medical records. Screening: Per USPSTF and CDC recommendations, given the prevalence of disease in our region, it is our hospital?s policy to screen for HIV and viral Hepatitis for all patients aged 18 and over and those with ongoing risk factors. Matteo Inquiry Pt receiving controlled substance: No
[2024-09-06 16:11] VITALS: BP 134/79; PULSE 114; RESP 20; TEMP 36.8; O2SAT 96
== END 2024-09-06 16:14 | disposition home or self-care (01) ==
PROVIDERS: Emergency Provider Nurse Practitioner Family; PCP Family Medicine
DX: L29.9 Pruritus, unspecified (principal)
CPT/HCPCS: 99213; G0381